=== PATIENT | male | born 1945 | race Caucasian/White ===

== ENCOUNTER 2022-10-30 11:39 | Outpatient (REF) | payer MEDICARE, SELFPAY ==
[2022-10-30 11:56] LABS: MANUAL DIFF FLAG NO
[2022-10-30 12:18] LABS: Basophils Percent Auto 0.5 % (0-2); Eosinophils Absolute Auto 0.2 X10*3/uL (0.0-0.4); Hemoglobin 14.8 g/dl (14.0-18.0); Imm Gran Abs Auto 0.04 X10*3/uL (0.00-0.03); Imm Gran Pct Auto 0.7 % (0.0-0.4); Lymphocytes Absolute Auto 1.5 X10*3/uL (1.2-4.9); Lymphocytes Percent Auto 25.9 % (20-40); Mean Corpuscular HGB Conc 32.9 g/dl (31.0-36.0); Mean Corpuscular Hemoglobin 31.5 pg (27.0-33.0); Mean Corpuscular Volume 95.7 fL (80.0-98.0); Mean Platelet Volume 10.7 fL (9.4-12.4); Monocytes Absolute Auto 0.7 X10*3/uL (0.1-1.2); Monocytes Percent Auto 11.3 % (2-11); Neutrophils Absolute Auto 3.3 x10*3/uL (2.0-8.3); Neutrophils Percent Auto 57.6 % (45-73); Platelet Count 169 X10*3/uL (160-400); Red Cell Distribution Width 12.8 % (11.0-16.0); White Blood Count 5.8 X10*3/uL (4.8-10.8)
[2022-10-30 14:24] LABS: Alanine Aminotransferase 23 U/L (0-40); Albumin Level 3.9 g/dL (3.5-5.0); Alkaline Phosphatase 69 U/L (39-117); Anion Gap 11 (12-20); Aspartate Amino Transferase 20 U/L (5-37); Bilirubin Direct 0.3 mg/dL (0.0-0.5); Bilirubin Total 1.1 mg/dL (0.0-1.0); Blood Urea Nitrogen 13 mg/dL (9-16); Carbon Dioxide 27 mmol/L (22-29); Chloride 106 mmol/L (96-108); Cholesterol 163 mg/dL (<200); Estimated Glomerular Filt Rate > 60; Glucose Fasting 95 mg/dL (60-99); HDL Cholesterol 38 mg/dL (>40); LDL Cholesterol Calculated 102 mg/dL (<100); Potassium 3.9 mmol/L (3.3-5.1); Sodium 140 mmol/L (135-145); Total Protein 6.7 g/dL (6.5-8.0); Triglycerides 118 mg/dL (<150)
[2022-10-30 15:12] LABS: Prostate Specific Antigen Scr 0.78 ng/mL (<0.05-4.0)
== END 2022-10-30 11:40 | disposition home or self-care (01) ==
LOC: HO.LAB 11:39
PROVIDERS: PCP Internal Medicine; Visit Provider Internal Medicine
DX: Z00.00 Encounter for general adult medical examination without abnormal findings (principal); Z12.5 Encounter for screening for malignant neoplasm of prostate; E78.5 Hyperlipidemia, unspecified; R53.83 Other fatigue
CPT/HCPCS: 36415; 80051; 80061; 80076; 82565; 82947; 84153; 84520; 85025

== ENCOUNTER 2024-08-27 11:14 | Outpatient (AMB) | payer MEDICARE, SELFPAY ==
--- NOTE | 2024-08-27 11:22 | MHC.OFFVIS ---
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 Pt states he has been experiencing shortness of breath for the past 6 months. 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 The aneurysm was initially identified during a mobile lab screening in [place], where it was noted to be slightly enlarged. Subsequent evaluation by the patient's primary care physician led to further imaging, which showed an increase in size over a year. The patient alternates residence between [place] and [place], spending time in [place] until December. The most recent ultrasound was conducted at a regular hospital in April, and the aneurysm was deemed small, not requiring surgical intervention at this time. The patient has a history of smoking, having quit at the age of 36, and is currently prediabetic. There is no family history of aneurysms, although the patient is aware of a neighbor who from an aneurysm. He now presents for vascular evaluation. [facility] Social History (Updated 08/27/24 @ 11:25 by Ana Rosa Kolb [facility]) Alcohol intake: current Alcohol intake frequency: a few times a week Patient Tobacco Use Status: Never used Tobacco Use of substances other than those prescribed or required for medical reasons: No Review of Systems Const All systems reviewed & are unremarkable except as noted in HPI and below Reports no additional complaints ENT Reports Normal hearing present Card Denies chest pain, Denies chest pain at rest, Denies chest pain with activity and Denies pedal edema Resp Denies cough GI Denies abdominal pain Musc Denies abnormal gait, Denies muscle cramps and Denies radiating pain into limb Skin/Breast Denies skin ulcer and Denies wounds Neuro Reports Normal hearing present and Denies abnormal gait Psych Reports no additional complaints Physical Exam Vital Signs: BMI result Body Mass Index 35.5 Const General: cooperative, healthy appearing and comfortable Orientation/consciousness: oriented to person, oriented to place and oriented to time HEENT Head: Yes normal to inspection Neck Neck: Yes normal visual inspection Carotids: no bruits Chest Chest palpation & inspection: normal inspection of the chest Resp Effort & Inspection: normal respiratory effort and able to speak in complete sentences Auscultation: clear to auscultation bilaterally, no crackles, no rales, no rhonchi and no wheezes Cardio Rate: regular rate Rhythm: regular rhythm Heart sounds: S1 normal heart sound present and S2 normal heart sound present Bruits: no carotid bruits Peripheral pulses: Peripheral pulses 2+ throughout GI Inspection: Yes normal to inspection Skin Wounds: no wounds Hair: normal Neuro General: oriented to person, oriented to place and oriented to time Cranial nerves: Yes CN's II-XII intact bilaterally and Yes Normal hearing present Cognition (Neuro): normal cognition Motor exam (neuro): 5/5 motor strength present throughout Extrem Other: venous exam: No significant superficial varicosities or spider telangiectasias, minimal edema General: No clubbing, No cyanosis and No edema Psych Appearance: grossly normal Mental Status: mental status grossly normal Speech and movement: Normal speech and movement present Results Reviewed Results Reviewed: Written report from 05/07/2024 aortic ultrasound done in [place] measures 3.6 x 4.2 x 6.5 cm. Assessment & Plan Assessment & Plan (1) AAA (abdominal aortic aneurysm) without rupture: Code(s): I71.40 - Abdominal aortic aneurysm, without rupture, unspecified Category: Medical Qualifiers: Abdominal aorta location: infrarenal aorta Qualified Code(s): I71.43 - Infrarenal abdominal aortic aneurysm, without rupture Plan: In short patient has radiologic evidence of a AAA on 3.6 cm on ultrasound. We have discussed the pathophysiology of aortic aneurysms and the risk of ruptures. We have discussed rupture risk based on size. In addition we have discussed conservative measures and risk factor modification for prevention of increase in size of the aneurysm. the patient is scheduled for surveillance follow-up in approximately 3 months. Thank you for allowing us to participate in the care of this patient Orders: Orders US abdominal aortic aneurysm 3 Months I71.43 - Infrarenal abdominal aortic aneurysm, without rupture Coding Level of Care Code New Pt Level 4 (17883) Complex EM visit Add On G2211 Diagnoses Infrarenal abdominal aortic aneurysm (AAA) without rupture I71.43 Abdominal aorta location: infrarenal aorta
[2024-08-27 11:24] VITALS: BMI 35.5
--- OUTSIDE RECORDS SUMMARY | 2024-08-27 12:04 | XMS_ITS | Data Portability ---
Author Organization [facility], Main Office Address [address] [place] [address] Care Team Providers Care Lasting Room Machine Operator Name Role Phone AVA MILLER Rockboard Lather [phone] Assessment No assessment recorded. Plan of Treatment Reminders Order Date Submit Date Provider Last Modified By Organization Details Last Modified Time Details Appointments None record ed. Lab None record ed. Referral None record ed. Procedures None record ed. Surgeries None record ed. Imaging None record ed. Medication Orders None record ed. Patient TargetsNo targets recorded. Patient InstructionsNo instructions recorded. Reason for Referral None Reported. Procedures Surgical History Date Name Laterality Status Provider Name and Address Organization Details Recorded Time 3 colonoscopy completed Venecia Graham [facility] 02/12/2023 14:16:13 Imaging Results None recorded. Procedure Notes None recorded. Medical Equipment None Reported. Allergies No known drug allergies Medications Name Sig Start Date Stop Date Status Note LastModified by Organization Details LastModified Time losartan 50 mg tablet active Not Available Not Available Not Available atorvastatin 20 mg tablet active Not Available Not Available Not Available tamsulosin 0.4 mg capsule TAKE 1 CAPSULE BY MOUTH TWICE DAILY active Not Available Not Available No t Available clotrimazole-b etamethasone 1 %-0.05 % topical cream APPLY TWICE DAILY TO AFFECTED AREA NEEDED active Not Available Not Available No t Available ipratropium bromide 42 mcg (0.06 %) nasal spray SPRAY TWO SPRAYS IN EACH NOSTRIL THREE TIMES A DAY NEEDED active Not Available Not Available No t Available aspirin active Not Available Not Avail able Not Available Fish Oil active Not Available Not Avai lable Not Available Miralax active Not Available Not Avail able Not Available Vitals Date Recorded Body weight Heart rate Oxygen saturation Oxygen saturation in Arterial blood by Pulse oximetry Body mass index (BMI) Body height Systolic And Diastolic Provider Name and Address Organization Details Last Updated DateTime 3 02229.3 3 g 78 /min 98 % 98 % 34.5 kg/m2 167.64 cm 132/80 mm[Hg] Venecia Graham [facility] 3 14:14:14 Social History None recorded. Functional Status None recorded. Mental Status None recorded. Family History Relationship Description Onset Age of this Age Resolved Age Notes LastModified by Organization Details LastModified Time Maternal Uncle Malignant tumor of colon [email or web address] Not available 01/25 14:15:49 Medical History No medical history recorded. Past Encounters Encounter ID Performer Location Encounter Start Date Encounter Closed Date Diagnosis/Indication Diagnosis SNOMED-CT Code Diagnosis ICD10 Code Diagnosis Note [id number] DO [address] [facility] [place] [address] [facility] [address] [place] [address] 02/12/2023 13:10:43 02/12/2023 14:38:33 Altered bowel function 85113752 R19.4 1) 77-year-ol d male with reports of bowel changes in the last few weeks which has since resolved. He currently denies any constipati on and says he is having regular bowel movements. He also reported having had passing thinner than normal stools, but this has since resolved.2 ) I suggested trying a course of linzess; however, he politely declined in favor of continuing with his current bowel regimen. History of polyp of colon [id number] Z86.010 1) He reports his last colonoscop y in 2012 was negative but says colon polyps were found during a previous colonoscop y. He does report having had two negative Cologuard tests since 2013.2) I did suggest a surveillan ce colonoscop y; however, he politely declined to schedule at this time. We did review the risks of not having the procedure. 3) I asked him to contact the office if he should change his mind. Health Concerns Section Related Observation LastModified by Organization Detai ls LastModified Time None Recorded Concern Status LastModified by Organization Details LastModified Time None Recorded Advance Directives Directive None Recorded Payers Insurance Date Sequence Insurance Name Policy Number Policy Ramirez Covered Member ID Ramirez Member ID Guarantor Name 02/14/2023 2 [facility] (MEDICARE REPLACEMENT/A DVANTAGE - PPO) Vivek Appiah [id number] Vivek Appiah 02/14/2023 1 [place] Vivek Appiah [id number] Vivek Appiah 02/14/2023 2 [employer] (MEDICARE SUPPLEMENT) Vivek Appiah [id number] Vivek Appiah Notes Date Note Type Note Provider Name and Address Organization Details Recorded Time 02/12/2023 text/html 77-year-old male with a family history of colon cancer in a second-degree relative (a maternal uncle, diagnosed in his 60s), colon polyps, and bowel changes, presents for further evaluation. He reports pattern including having a bowel movement every 2 days with the use of buoj-qth-epbxzxz MiraLax daily. He said that he had recently tried a course of erai-jyb-ykqkobp probiotics; however, this led to a change in bowel habits citing him passing thinner than normal stools for 1-1/2 weeks. He did stop taking the probiotics and says his bowel movements have begun to return to normal. He says that he did have a normal bowel movement yesterday and today. He was report having to negative Cologuard test since his last colonoscopy in 2012, with his last negative Cologuard test occurring 6 months prior. Denies any reflux or heartburn symptoms. Per patient, his last colonoscopy was in and was negative. He does report a past history of colon polyps. AVA MILLER APRN [address] [facility], [place], [address], [facility] 02/12/2023 14:36:59
== END 2024-08-27 11:50 | disposition home or self-care (01) ==
LOC: HO.HVS 11:14
PROVIDERS: PCP Internal Medicine; Visit Provider Surgery Vascular Surgery
DX: I71.43 Infrarenal abdominal aortic aneurysm, without rupture (principal)
CPT/HCPCS: 99204; G2211

== ENCOUNTER → 2024-08-27 11:14 | Outpatient (BNVA) | payer MEDICARE, SELFPAY | PROVIDERS: PCP Internal Medicine; Visit Provider Surgery Vascular Surgery | DX: I71.43 Infrarenal abdominal aortic aneurysm, without rupture (principal) | CPT/HCPCS: 99202 ==

== ENCOUNTER 2024-10-22 10:47 | Outpatient (AMB) | payer MEDICARE, SELFPAY ==
--- NOTE | 2024-10-22 10:51 | MHC.OFFVIS ---
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 Butcher. He has a past medical history of hypertension, BPH, hyperlipidemia, and abdominal aortic aneurysm. He presents to the office today as a new patient for weak urinary stream. In discussion with the patient today he reports for many years he had been following up with his urological care with his PCP however he has most recently retired and recommendations were made for urology referral for further assessment evaluation. He reports for many years he has had a weak urinary stream at which time he was started on Flomax and did find this helpful. He reports more recently he started experiencing weak urinary stream and recommendations were made for increase in Flomax to 0.8 mg daily. He does feel this has been helpful. He also reports a previous history of a hydrocele and having had intervention however does not recall will provider he followed up with. He reports this was many years ago. He also reports feeling his penis is hidden. In office urinalysis results reviewed with the patient today. PVR 0 mL. He denies nocturia, hematuria, dysuria, foul smelling urine, changes to urinary stream, flank pain, fever, and or chills. We did discussed at length potential causes of weak urinary stream and buried penis. We discussed obtaining retroperitoneal ultrasound and PSA for further assessment evaluation. All questions were answered. He otherwise offers no other issues or concerns at this time. In review of patient's chart it appears PSA 07/17 0.8. He discusses typically living in [place] from December to April and would like to have workup done prior to leaving. Urinary Symptoms Review - Slow urinary stream despite tamsulosin treatment - Increased urine output during bowel movements - Current medication: Tamsulosin 0.4 mg twice daily - Finasteride prescribed by PCP but not yet taken Discussion Notes I discussed with the patient that the slow urinary stream could be related to an enlarged prostate, which is common with aging. We talked about the role of medications like tamsulosin and finasteride, and the potential need for an ultrasound for further assessment evaluation I explained the benefits and risks of medication versus surgical intervention for benign prostatic hyperplasia. The patient was advised to continue with tamsulosin and to consider sitting while urinating to help with bladder emptying. We also discussed the importance of addressing any potential side effects of medications and considering lifestyle modifications. [facility] Social History (Updated 08/27/24 @ 11:25 by Ana Rosa Kolb CMA) Alcohol intake: current Alcohol intake frequency: a few times a week Patient Tobacco Use Status: Never used Tobacco Review of Systems Const All systems reviewed & are unremarkable except as noted in HPI and below Physical Exam Const General: cooperative, healthy appearing, comfortable, no acute distress, well developed, alert and awake Nutritional Appearance: overweight Orientation/consciousness: patient oriented x3 Limitations: no limitations HEENT Head: Yes normal to inspection, Yes normocephalic and Yes atraumatic Ears: hearing grossly normal bilaterally Eyes General: appearance normal, both eyes and all related structures Neck Neck: Yes normal visual inspection and Yes trachea midline Chest Chest palpation & inspection: normal inspection of the chest Resp Effort & Inspection: normal respiratory effort and able to speak in complete sentences Cardio Rate: regular rate GI Inspection: Yes normal to inspection General: Yes no CVA tenderness Back/Spine/Pelvis Back: no CVA tenderness Skin General skin exam: no rashes or lesions noted Neuro General: patient oriented x3 Extrem General: Yes normal to inspection Psych Appearance: grossly normal and well kempt Mental Status: mental status grossly normal Speech and movement: Normal speech and movement present and Clear speech present Affect: normal affect Attitude: cooperative Thought process: Normal thought process present Thought content: Normal thought content present Insight: Fair insight present (Psych) Judgement: Fair judgement present (Psych) Office Procedures Post Void Residual Post Residual Void Post Void Residual (PVR): 0 [id number]-Fddh Void Residual by ultrasound Results AMB Urinalysis, Automated UA Leukoctes 0 Janak/uL Last Edit by SHONNA Medina on 10/22/24 11:05 UA Nitrite Negative Last Edit by SHONNA Medina on 10/22/24 11:05 UA Urobilinogen 0.2 mg/dL Last Edit by Edson Willis [facility] on 10/22/24 11:05 UA Protein 15 mg/dL Last Edit by Edson Willis [facility] on 10/22/24 11:05 UA pH 7.0 Last Edit by Edson Willis [facility] on 10/22/24 11:05 UA Blood 0 Layo/uL Last Edit by Edson Willis [facility] on 10/22/24 11:05 UA Specific [place] 1.010 Last Edit by Edson Willis [facility] on 10/22/24 11:05 UA Ketone Negative Last Edit by Edson Willis [facility] on 10/22/24 11:05 UA Bilirubin 0 mg/dL Last Edit by Edson Willis [facility] on 10/22/24 11:05 UA Glucose 0 mg/dL Last Edit by Edson Willis [facility] on 10/22/24 11:05 Results Reviewed Results Reviewed: Laboratory Last Values Urine pH (Auto) 7.0 10/22/24 11:05 Specific [place] (Auto) 1.010 10/22/24 11:05 Urine Protein (Auto) 15 mg/dL 10/22/24 11:05 Glucose (UA)(Auto) 0 mg/dL 10/22/24 11:05 Urine Ketones (Auto) Negative 10/22/24 11:05 Urine Blood (Auto) 0 Layo/uL 10/22/24 11:05 Urine Nitrite (Auto) Negative 10/22/24 11:05 Urine Bilirubin (Auto) 0 mg/dL 10/22/24 11:05 Urine Urobilinogen (Auto) 0.2 mg/dL 10/22/24 11:05 Leukocyte Esterase (Auto) 0 Janak/uL 10/22/24 11:05 Assessment & Plan Assessment & Plan (1) Weak urinary stream: Code(s): R39.12 - Poor urinary stream Category: Medical Plan In office urinalysis results reviewed with the patient today; as noted above. PVR 0 mL. Continue Flomax. We did discussed importance of weight loss to assist with lower urinary tract symptoms as well as buried penis. We discussed attempting to sit when voiding to relax pelvis. Will obtain PSA for further assessment evaluation. Will obtain retroperitoneal ultrasound for further assessment evaluation. We did discussed potential causes of buried penis, weak urinary stream, and hydroceles. All questions were answered. Follow-up in 1-3 months with imaging, labs and PVR; or sooner with any issues, concerns, and or questions. Orders: Orders AMB Urinalysis Automated Today Z13.9 - Encounter for screening, unspecified US retroperitoneal comp Today R39.12 - Poor urinary stream Prostate Specific Antigen Today R39.12 - Poor urinary stream Patient Instructions: The patient had an opportunity to ask questions regarding the treatment plan. All questions were answered. Physical exam, labs, and imaging were discussed and reviewed in detail. As well as risks, benefits, and discussion of treatment choices. No major barriers to understanding were identified. The patient expressed understanding and agreement with the above treatment plan. The patient was made aware they should contact our office by phone for worsening of their current condition, the appearance of new symptoms, or with any questions or concerns. Compliance is encouraged with any medications and follow up testing that is ordered. It is a privilege to be allowed the opportunity to participate in? your urological care.? Again, if you have any questions or concerns If you have any questions or concerns please do not hesitate to contact me. The office is [phone]. This note is constructed using voice recognition software. While every effort has been made to ensure accuracy entrepreneurship program director errors may have been included. Yours sincerely, REG Salazar Coding Level of Care Code New Pt Level 3 (83947) Diagnoses Weak urinary stream R39.12 CPT Codes Post Residual Void - PVR CPT Code: 27747-Xict Void Residual by ultrasound ([id number])
--- OUTSIDE RECORDS SUMMARY | 2024-10-22 12:16 | XMS_ITS | Patient Health Record ---
Author Organization [facility] Address [address] [place] [address] Care Team Providers Care Psychology Physician Name Role Phone Hadley (RETIRED) [employer] Primary Care Provider Unavailable Marin Haynes Unavailable [phone] Reason For Referral No Information Plan Of Treatment No Information
== END 2024-10-22 11:38 | disposition home or self-care (01) ==
LOC: HO.HUSH 10:47
PROVIDERS: PCP Internal Medicine; Visit Provider Nurse Practitioner Family
DX: Z13.9 Encounter for screening, unspecified (principal); R39.12 Poor urinary stream
CPT/HCPCS: 99203

== ENCOUNTER → 2024-10-22 10:47 | Outpatient (BNVA) | payer MEDICARE, SELFPAY | PROVIDERS: PCP Internal Medicine; Visit Provider Nurse Practitioner Family | DX: R39.12 Poor urinary stream (principal); Z13.9 Encounter for screening, unspecified | CPT/HCPCS: 51798; 81003; 99202 ==

== ENCOUNTER 2024-11-23 07:59 | Outpatient (REF) | payer MEDICARE, SELFPAY ==
--- NOTE | ~2024-11-23 | US_ITS ---
CLINICAL HISTORY: I71.43 - Infrarenal abdominal aortic aneurysm, without rupture US of abdominal aorta Comparison: None provided Findings: Atherosclerotic changes of the abdominal aorta, fusiform aneurysmal dilatation of distal abdominal aorta with mildly prominent mural thrombus, borderline aneurysmal dilatation of the proximal aorta. Aorta diameter proximal 3.0 x 2.7 cm. Aorta diameter mid 2.0 x 2.5 cm. Aorta diameter distal 4.0 x 5.0 cm. Right common iliac artery maximum diameter 1.6 x 2.2 cm. Left common iliac artery maximum diameter 1.4 x 1.5 cm. Impression: 1. Distal abdominal aorta aneurysm 5 cm with mildly prominent mural thrombus. 2. 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 3. 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 This document has been electronically signed by: Jodi Grijalva MD on 11/23/2024 16:46:24
--- OUTSIDE RECORDS SUMMARY | 2024-11-23 08:02 | XMS_ITS | Patient Health Record ---
Author Organization [facility] Address [address] [place] [address] Care Team Providers Care Well Blower Name Role Phone Hadley (RETIRED) [employer]wan [employer] Primary Care Provider Unavailable Marin Haynes Unavailable [phone] Reason For Referral No Information Plan Of Treatment No Information
== END 2024-11-23 08:00 | disposition home or self-care (01) ==
LOC: HO.US 07:59
PROVIDERS: PCP Internal Medicine; Visit Provider Surgery Vascular Surgery
DX: I71.43 Infrarenal abdominal aortic aneurysm, without rupture (principal)
CPT/HCPCS: 76706

== ENCOUNTER → 2024-11-23 08:01 | Outpatient (BNV) | payer MEDICARE, SELFPAY | PROVIDERS: PCP Internal Medicine; Visit Provider Radiology Diagnostic Radiology | DX: I71.40 Abdominal aortic aneurysm, without rupture, unspecified (principal) | CPT/HCPCS: 76706 ==

== ENCOUNTER 2024-11-24 10:23 | Outpatient (AMB) | payer MEDICARE, SELFPAY ==
[2024-11-24 10:24] VITALS: BP 138/80; PULSE 78; RESP 20; TEMP 36.3; O2SAT 97; BMI 36.2
--- NOTE | 2024-11-24 10:24 | A.OFFPC_ITS ---
Vital Signs 11/24/24 10:24 Height 5 ft 6 in Weight 224 lb 8 oz BMI 36.2 BP 138/80 Blood Pressure Location Rt brachial Position Sitting Respiration 20 Pulse 78 Pulse Source Pulse Oximeter Temp 97.3 F Temp Source Temporal Artery Scan Pulse Oximetry (%) 97 Oxygen Delivery Method Room Air Intake Visit Reasons: Establish care Accompanied by: Self / Same As Patient Allergies Gadolinium-Containing Contrast Medi Allergy (Mild, Verified 11/24/24 10:46) Rash Medication List - Last Reconciled 11/24/24 by Marcia De La Paz PA-C aspirin 162.5 mg PO 2XW atorvastatin 20 mg PO DAILY coQ10 (ubiquinol) (Qunol Rashawn CoQ10) 100 mg PO BID fexofenadine (Remedios Allergy) 180 mg PO DAILY losartan 50 mg PO DAILY magnesium glycinate mg PO icifggtt-vdz-zhjmn-vit K-lycop 400-20-370 mcg (Men's 50 Plus Multivitamin) 1 tab PO DAILY tamsulosin 0.4 mg PO BID Tobacco use date assessed: 11/24/24 Fall risk assessment: No Falls in past year Last assessed Fall Risk: 11/24/24 Dental Screening Dental Screen Date: 11/24/24 Did you have a dental visit in the last 12 months?: Yes Was dental information given to patient?: Patient has dentist HPI Establish care HPI Details The patient is a 79-year-old male presenting with concerns about a persistent throat issue. He reports experiencing a sensation of something getting stuck in his throat for about a year and a half, particularly noticeable at night when lying down. He describes the sensation as a thickening or swelling feeling, accompanied by phlegm accumulation that necessitates sitting up to clear. The patient has a history of prediabetes, with glucose levels consistently high for the past 10 to 15 years, and a hemoglobin A1c of 5.9% noted in December. He has been managing his condition with lifestyle modifications and regular monitoring. He has been on atorvastatin for hyperlipidemia for approximately 30 years, with current cholesterol levels well-controlled. The patient also takes CoQ10, which he reports has alleviated some symptoms associated with statin use. The patient is on losartan for hypertension, with blood pressure readings noted as perfect during the visit. He reports symptoms consistent with rhinitis, including watery eyes and sneezing after meals, which he manages with Remedios. A heart murmur was detected during the physical examination, and the patient reports occasional shortness of breath when climbing stairs. He has a history of a previous echocardiogram and is awaiting a cardiology appointment in December. Social History - Exercise: The patient does not report a specific exercise routine. - Sleep: The patient takes naps in the a fternoon, which affects his nighttime sleep duration. [facility] Medical History (Updated 11/24/24 @ 13:50 by Marcia De La Paz PA-C) Heart murmur Rhinitis Hypertension Hyperlipidemia Prediabetes GERD (gastroesophageal reflux disease) Family History Mother AD (Alzheimer's disease) Father Heart disease Social History Housing: House Alcohol intake: current Alcohol intake frequency: a few times a week Patient Tobacco Use Status: Former Tobacco user service: Yes Current occupational status: employed and retired Cognitive needs: No Hearing needs: No Vision needs: Yes (rx glasses) Questionnaire PHQ-9 Over the last 2 weeks, how often have you been bothered by any of the following problems? 1. Little interest or pleasure in doing things: not at all 2. Feeling down, depressed, or hopeless: not at all 3. Trouble falling or staying asleep, or sleeping too much: not at all 4. Feeling tired or having little energy: not at all 5. Poor appetite or overeating: not at all 6. Feeling bad about yourself - or that you are a failure or have let yourself or your family down: not at all 7. Trouble concentrating on things, such as reading the newspaper or watching television: not at all 8. Moving or speaking so slowly that other people could have noticed. Or the opposite - being so fidgety or restless that you have been moving around a lot more than usual: not at all 9. Thoughts that you would be better off or of hurting yourself in some way: not at all Total score: 0 Depression Screening Interpretation: Negative Depression Screening Done: Yes 57753 - PHQ-9 Billing: Yes Source: Developed by Drs. Marin Orellana, Morenita Arellano, Steffen Knapp and colleagues, with an educational susana from [employer] Thrive Questionnaire Date Thrive assessed: 11/24/24 I am a: Patient What is your living situation today?: I have a steady place to live Within the past 12 months, did the food you bought not last and you didn't have the money to get more?: Never true Within the past 12 months, did you worry whether your food would run out before you got money to buy more?: Never true Do you have trouble paying for medicines?: No Do you have trouble getting transportation to medical appointments?: No Do you have trouble paying your heating and electricity bill?: No Do you have trouble taking care of your child, family member or friend?: No Do you have trouble with day-to-day activities such as bathing, preparing meals, shopping, managing finances, etc.?: No Are you currently unemployed and looking for a job?: No Are you interested in more education?: No Please select the resources that you would like help with: None THRIVE Score: 0 AUDIT C Alcohol Use Questionnaire (AUDIT-C) 1. How often do you have a drink containing alcohol?: 2-3 times a week 2. How many drinks containing alcohol do you have on a typical day when you are drinking?: 1 or 2 Total Score: 3 Score Reviewed/Action Taken: No CASA-7 AMB Questionnaire CASA-7 Date CASA - 7 assessed: 11/24/24 Feeling nervous, anxious, or on edge: 0 = Not at all Not being able to stop or control worryin = Not at all Worrying too much about different things: 0 = Not at all Trouble relaxin = Not at all Being so restless that it is hard to sit still: 0 = Not at all Becoming easily annoyed or irritable: 0 = Not at all Feeling afraid as if something awful might happen: 0 = Not at all Total CASA-7 score (0-4 normal; 5-9 mild; 10-14 moderate; 15-21 severe): 0 Source: Developed by Drs. Marin Orellana, Morenita Arellano, Steffen Knapp and colleagues, with an educational susana from [employer]. CASA-7 Assessment Billing CASA-7 Assessment Tool: CASA-7 Assessment 03170 Review of Systems Const Details: - General: Denies recent falls. - Cardiovascular: Reports occasional shortness of breath when climbing stairs. Denies chest pain. - Respiratory: Denies cough or wheezing. - Gastrointestinal: Reports sensation of something stuck in throat, phlegm accumulation at night. - Neurological: Denies headaches or dizziness. - Musculoskeletal: Denies swelling in legs, reports sensation of lump pads on feet at night. All systems reviewed & are unremarkable except as noted in HPI and below Physical exam (Primary Care) Vital Signs: Last Vital Signs Temp 97.3 F 11/24/24 10:24 Pulse 78 11/24/24 10:24 Resp 20 11/24/24 10:24 BP 138/80 11/24/24 10:24 Pulse Ox 97 11/24/24 10:24 Oxygen Delivery Method Room Air 11/24/24 10:24 Care Plan Goal for BP management: <140/90 at Goal BMI result Body Mass Index 36.2 BMI Assessment/Plan discussion: High BMI High, discussed plan: lifestyle, weight reduction, dietary, physical activity, alcohol moderation and other Tobacco/Smoking Status: Tobacco use Status Tobacco use date assessed 11/24/24 11/24/24 10:27 Patient Tobacco Use Status Former Tobacco user 11/24/24 10:41 PHQ-9: PHQ-9 Score PHQ-9: Total score 0 11/24/24 10:41 Depression Screening Interpretation: Negative Thrive Assessment: Date of Thrive Assessment Date Thrive assessed 11/24/24 11/24/24 10:27 Const Other: Appearance: Alert. Oriented X3. No acute distress. Head: Normal external exam. Normocephalic. Atraumatic. Eyes: Pupils are equal, round, and reactive to light. Extraocular movements intact. Conjunctiva and sclera normal. Eyelids normal. Ears: External auditory canal normal. Tympanic membranes normal. Throat: Pharynx normal. Uvula midline. Moist mucous membranes. Patient reports sensation of something in the throat, especially at night, with phlegm accumulation causing coughing. Neck: Normal inspection. Neck supple. Full range of motion. No adenopathy. Thyroid Normal. No meningeal signs. No neck mass noted. Cardiovascular: Normal heart rate and rhythm. Heart sound normal. Murmur noted. Pulses normal throughout. Respiratory: No respiratory distress. Painless inspiration. Breath sounds normal. No wheezes/rales/rhonchi noted. Chest nontender. No accessory muscle usage noted or decreased air movement noted. Reports occasional shortness of breath when climbing stairs. Abdomen: Soft and nontender. No distention noted. No organomegaly noted. Back: No costovertebral angle tenderness. Full range of motion noted. Skin: Skin warm and dry. Normal skin color. Normal skin turgor. No rashes/lesions/lacerations noted. Extremities: No lower extremity edema. Extremities exhibit normal range of motion. Reports sensation of lump pads on the bottom of feet at night. Neuro: Oriented X 3. No motor deficit. No sensory deficit. Reflexes normal. Office Procedures Flu Questionnaire Does the patient have a severe egg allergy?: No Does the patient have severe life threatening allergies?: No Does the patient have a fever or illness today?: No Has the patient ever had Guillain-Alpine Syndrome?: No Has the patient ever had any past reaction to a flu shot?: No Immunizations Fluarix [id number] (PF) 45 mcg (15 mcg x 3)/0.5 mL IM syringe Performing Provider: Marcia De La Paz PA-C [place] [facility] Documented (not given) by: Natalie Mendes CMA on 11/24/24 10:41 Reason Not Given: Received Previously Results Reviewed Results Reviewed: - Labs: Glucose 112 mg/dL, Hemoglobin A1c 5.9%, Total cholesterol 145 mg/dL, Triglycerides 116 mg/dL, HDL 40 mg/dL, LDL 82 mg/dL. - Tests: Previous echocardiogram noted, awaiting cardiology appointment. Coding Level of Care Code New Pt Level 4 (08068) Complex EM visit Add On G2211 Diagnoses Prediabetes R73.03 Hyperlipidemia E78.5 Hypertension I10 GERD (gastroesophageal reflux disease) K21.9 Rhinitis J31.0 Heart murmur R01.1 Infrarenal abdominal aortic aneurysm (AAA) without rupture I71.43 Abdominal aorta location: infrarenal aorta Additional Codes PHQ-9 - 78214 - PHQ-9 Billing: Yes ([id number]) CASA-7 Assessment Billing - CASA-7 Assessment Tool: CASA-7 Assessment 08250 ([id number]) Time Spent (min) 45 Assessment & Plan Assessment & Plan (1) Prediabetes: Code(s): R73.03 - Prediabetes Category: Medical Plan: The patient has a history of prediabetes with glucose levels consistently high for the past 10 to 15 years and a hemoglobin A1c of 5.9% noted in December. Management includes lifestyle modifications and regular monitoring of glucose levels. (2) Hyperlipidemia: Code(s): E78.5 - Hyperlipidemia, unspecified Category: Medical Plan: The patient has been on atorvastatin for hyperlipidemia for approximately 30 years, with current cholesterol levels well-controlled. He also takes CoQ10, which has alleviated some symptoms associated with statin use. (3) Hypertension: Code(s): I10 - Essential (primary) hypertension Category: Medical Plan: The patient is on losartan for hypertension, with blood pressure readings noted as perfect during the visit. (4) GERD (gastroesophageal reflux disease): Code(s): K21.9 - Gastro-esophageal reflux disease without esophagitis Category: Medical Plan: The patient reports a sensation of something getting stuck in his throat, particularly noticeable at night, accompanied by phlegm accumulation. A barium swallow study and referral to gastroenterology for further evaluation have been planned. (5) Rhinitis: Code(s): J31.0 - Chronic rhinitis Category: Medical Plan: The patient reports symptoms consistent with rhinitis, including watery eyes and sneezing after meals, managed with Remedios. (6) Heart murmur: Code(s): R01.1 - Cardiac murmur, unspecified Category: Medical Plan: A heart murmur was detected during the physical examination, and the patient reports occasional shortness of breath when climbing stairs. He has a history of a previous echocardiogram and is awaiting a cardiology appointment in December. (7) AAA (abdominal aortic aneurysm) without rupture: Code(s): I71.40 - Abdominal aortic aneurysm, without rupture, unspecified Category: Medical Qualifiers: Abdominal aorta location: infrarenal aorta Qualified Code(s): I71.43 - Infrarenal abdominal aortic aneurysm, without rupture Plan: Patient has follow-up with Cardiology in December here at [facility]. Denies any acute complaints. Condition is chronic and stable continue to monitor. Plan Plan Patient was informed and verbally consented to the use of an ambient scribe for clinic note documentation during this visit. 1. Prediabetes The patient has a history of prediabetes with glucose levels consistently high for the past 10 to 15 years and a hemoglobin A1c of 5.9% noted in December. Management includes lifestyle modifications and regular monitoring of glucose levels. 2. Hyperlipidemia The patient has been on atorvastatin for hyperlipidemia for approximately 30 ye ars, with current cholesterol levels well-controlled. He also takes CoQ10, which has alleviated some symptoms associated with statin use. 3. Hypertension The patient is on losartan for hypertension, with blood pressure readings noted as perfect during the visit. 4. Gastroesophageal Reflux Disease (Gerd) The patient reports a sensation of something getting stuck in his throat, particularly noticeable at night, accompanied by phlegm accumulation. A barium swallow study and referral to gastroenterology for further evaluation have been planned. 5. Rhinitis The patient reports symptoms consistent with rhinitis, including watery eyes and sneezing after meals, managed with Remedios. 6. Heart Murmur A heart murmur was detected during the physical examination, and the patient reports occasional shortness of breath when climbing stairs. He has a history of a previous echocardiogram and is awaiting a cardiology appointment in December. During the visit, we discussed the patient's persistent throat issue and the plan to conduct a barium swallow study and refer him to gastroenterology for further evaluation. We also reviewed his cardiovascular status, noting the presence of a heart murmur and the need for a follow-up with cardiology. The patient was advised on the importance of regular monitoring of his prediabetes and hyperlipidemia, with lifestyle modifications and medication adherence emphasized. Orders: Orders UA CC w/rflx Micro + Cult Today Z00.00 - Encounter for general adult medical examination without abnormal findings Vitamin D 25-OH Total Today Z00.00 - Encounter for general adult medical ex amination without abnormal findings Magnesium Today Z00.00 - Encounter for general adult medical examination without abnormal findings C Reactive Protein Today Z00.00 - Encounter for general adult medical examination without abnormal findings FL barium enema Today K21.9 - Gastro-esophageal reflux disease without esoph agitis Influenza [id number] Immunization Today Z23 - Encounter for immunization Hemoglobin A1c Today Z00.00 - Encounter for general adult medical examination without abnormal findings Lipid Panel Today Z00.00 - Encounter for general adult medical examination without abnormal findings PSA,Total (Free>4and<10) Today Z00.00 - Encounter for general adult medical examination without abnormal findings Vitamin B12 and Folate Today Z00.00 - Encounter for general adult medical examination without abnormal findings H pylori Ag Stool Today K21.9 - Gastro-esophageal reflux disease without esophagitis Referrals Cologuard Test Z12.11 - Encounter for screening for malignant neoplasm of colon, Z12.12 - Encounter for screening for malignant neoplasm of rectum Gastroenterology Referral K21.9 - Gastro-esophageal reflux disease without esophagitis Medications: New fexofenadine (Remedios Allergy) 180 mg PO DAILY 90 tabs 3RF omeprazole 40 mg PO DAILY 90 caps 3RF Patient Instructions: - Schedule and complete the barium swallow study as instructed. - Follow up with the business relations manager as referred. - Continue current medications as prescribed, including atorvastatin, losartan, and Remedios. - Monitor blood glucose levels regularly and adhere to lifestyle modifications for prediabetes management. - Attend the cardiology appointment in December for further evaluation of the heart murmur.
--- OUTSIDE RECORDS SUMMARY | 2024-11-24 11:32 | XMS_ITS | Patient Health Record ---
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
== END 2024-11-24 11:12 | disposition home or self-care (01) ==
LOC: HO.HMCSH 10:23
PROVIDERS: PCP Internal Medicine; Visit Provider Physician Assistant Medical
DX: R73.03 Prediabetes (principal); E78.5 Hyperlipidemia, unspecified; I10 Essential (primary) hypertension; K21.9 Gastro-esophageal reflux disease without esophagitis; J31.0 Chronic rhinitis; R01.1 Cardiac murmur, unspecified; I71.43 Infrarenal abdominal aortic aneurysm, without rupture; Z23 Encounter for immunization

== ENCOUNTER → 2024-11-24 10:23 | Outpatient (BNVA) | payer MEDICARE, SELFPAY | PROVIDERS: PCP Internal Medicine; Visit Provider Physician Assistant Medical | DX: R09.A2 Foreign body sensation, throat (principal); R73.03 Prediabetes; E78.5 Hyperlipidemia, unspecified; I10 Essential (primary) hypertension; J31.0 Chronic rhinitis; R01.1 Cardiac murmur, unspecified; K21.9 Gastro-esophageal reflux disease without esophagitis; I71.43 Infrarenal abdominal aortic aneurysm, without rupture; R00.1 Bradycardia, unspecified; Z28.89 Immunization not carried out for other reason; Z79.899 Other long term (current) drug therapy | CPT/HCPCS: 90471; 96127; 99202 ==

== ENCOUNTER 2024-12-08 10:52 | Outpatient (REF) | payer MEDICARE, SELFPAY ==
[2024-12-08 12:17] LABS: Appearance Urine Clear; Glucose Urine UA Negative (Negative); PH 5.5 (5.0-9.0); Specific Gravity - Urine 1.015 (1.005-1.025); UMIC TRIGGER UACC YES
[2024-12-08 12:30] LABS: UACC Culture Trigger YES
[2024-12-08 12:33] LABS: Hemoglobin A1C 150.7299 umol/L; Total Hemoglobin (HGBA1C) 3748.1218 umol/L
[2024-12-08 12:47] LABS: Cholesterol 158 mg/dL (<200); HDL Cholesterol 37 mg/dL (>40); Magnesium 2.3 mg/dL (1.6-2.6); Triglycerides 106 mg/dL (<150)
[2024-12-08 13:01] LABS: Prostate Specific Antigen 0.78 ng/mL (<0.05-4.0)
--- OUTSIDE RECORDS SUMMARY | 2024-12-08 13:01 | XMS_ITS | Patient Health Record ---
Author Organization [facility] Address [address] [place] [address] Care Team Providers Care Ror Engineer Name Role Phone Hadley (RETIRED) [employer] Primary Care Provider Unavailable Marin Haynes Unavailable [phone] Reason For Referral No Information Plan Of Treatment No Information
[2024-12-08 13:02] LABS: PSA,Total (Free>4and<10) 0.78 ng/mL (0.00-4.00)
[2024-12-08 13:16] LABS: Folate 12.6 ng/mL (> or = 4.0); Vitamin B12 607 pg/mL (200-900)
== END 2024-12-08 10:53 | disposition home or self-care (01) ==
LOC: HO.LAB 10:52
PROVIDERS: Absent Provider Nurse Practitioner Family; PCP Physician Assistant Medical; Visit Provider Physician Assistant Medical
DX: Z00.00 Encounter for general adult medical examination without abnormal findings (principal); Z13.6 Encounter for screening for cardiovascular disorders; Z13.1 Encounter for screening for diabetes mellitus; Z12.5 Encounter for screening for malignant neoplasm of prostate; R39.12 Poor urinary stream
CPT/HCPCS: 36415; 80061; 81001; 82306; 82607; 82746; 83036; 83735; 84153; 86140; 87086

== ENCOUNTER 2024-12-10 10:10 | Outpatient (AMB) | payer MEDICARE, SELFPAY ==
--- NOTE | 2024-12-10 10:12 | MHC.OFFVIS ---
Vital Signs 12/10/24 10:15 Height 5 ft 6 in Weight 224 lb BMI 36.2 Intake Visit Reasons: follow up AAA US 11/23/24 Intake Note: follow up AAA US 11/23/24, no complaints Accompanied by: Self / Same As Patient Allergies Gadolinium-Containing Contrast Medi Allergy (Mild, Verified 12/10/24 10:16) Rash HPI HPI follow up AAA US 11/23/24: Details: The patient is a 79-year-old male presenting for evaluation of an abdominal aortic aneurysm. The aneurysm was initially identified during a mobile lab screening in [place], and subsequent imaging at a hospital facility confirmed the presence of the aneurysm. The most recent ultrasound dated 11/23/2024 shows the distal aorta measuring 5 cm with a prominent thrombus. The patient has a history of smoking, having quit at the age of 36, and is currently prediabetic. There is no family history of aneurysms reported. She now presents for vascular evaluation. [facility] Medical History Heart murmur Rhinitis Hypertension Hyperlipidemia Prediabetes GERD (gastroesophageal reflux disease) Family History Mother AD (Alzheimer's disease) Father Heart disease Social History Housing: House Alcohol intake: current Alcohol intake frequency: a few times a week Patient Tobacco Use Status: Former Tobacco user service: Yes Current occupational status: employed and retired Cognitive needs: No Hearing needs: No Vision needs: Yes (rx glasses) Review of Systems Const All systems reviewed & are unremarkable except as noted in HPI and below Reports no additional complaints ENT Reports Normal hearing present Card Denies chest pain, Denies chest pain at rest, Denies chest pain with activity and Denies pedal edema Resp Denies cough GI Denies abdominal pain Musc Denies abnormal gait, Denies muscle cramps and Denies radiating pain into limb Skin/Breast Denies skin ulcer and Denies wounds Neuro Reports Normal hearing present and Denies abnormal gait Psych Reports no additional complaints Physical Exam Vital Signs: BMI result Body Mass Index 36.2 Const General: cooperative, healthy appearing and comfortable Orientation/consciousness: oriented to person, oriented to place and oriented to time HEENT Head: Yes normal to inspection Neck Neck: Yes normal visual inspection Carotids: no bruits Chest Chest palpation & inspection: normal inspection of the chest Resp Effort & Inspection: normal respiratory effort and able to speak in complete sentences Auscultation: clear to auscultation bilaterally, no crackles, no rales, no rhonchi and no wheezes Cardio Rate: regular rate Rhythm: regular rhythm Heart sounds: S1 normal heart sound present and S2 normal heart sound present Bruits: no carotid bruits Peripheral pulses: Peripheral pulses 2+ throughout GI Inspection: Yes normal to inspection Skin Wounds: no wounds Hair: normal Neuro General: oriented to person, oriented to place and oriented to time Cranial nerves: Yes CN's II-XII intact bilaterally and Yes Normal hearing present Cognition (Neuro): normal cognition Motor exam (neuro): 5/5 motor strength present throughout Extrem Other: venous exam: No significant superficial varicosities or spider telangiectasias, minimal edema General: No clubbing, No cyanosis and No edema Psych Appearance: grossly normal Mental Status: mental status grossly normal Speech and movement: Normal speech and movement present Results Reviewed Results Reviewed: Ultrasound dated 11/23/2024 demonstrates distal aorta measuring 4 x 5 cm. Written report and images were reviewed. Assessment & Plan Assessment & Plan (1) AAA (abdominal aortic aneurysm) without rupture: Code(s): I71.40 - Abdominal aortic aneurysm, without rupture, unspecified Category: Medical Qualifiers: Abdominal aorta location: infrarenal aorta Qualified Code(s): I71.43 - Infrarenal abdominal aortic aneurysm, without rupture Plan: I discussed with the patient the need for a CT scan to confirm the size of the abdominal aortic aneurysm, as the ultrasound measurement may not be accurate. We plan to complete the CT scan before the patient leaves for [place], ensuring timely follow-up. If the aneurysm size warrants intervention, we will consider endovascular stent placement. Plan Patient was informed and verbally consented to the use of an ambient scribe for clinic note documentation during this visit. Orders: Orders Creatinine Today I71.43 - Infrarenal abdominal aortic aneurysm, without rupture Blood Urea Nitrogen Today I71.43 - Infrarenal abdominal aortic aneurysm, without rupture CT angio abdomen pelvis Today I71.43 - Infrarenal abdominal aortic aneurysm, without rupture Patient Instructions: - Schedule a CT scan before leaving for [place]. - Follow up with the vascular surgeon after the CT scan results are available. Coding Level of Care Code Est Pt Level 4 (75751) Complex EM visit Add On G2211 Diagnoses Infrarenal abdominal aortic aneurysm (AAA) without rupture I71.43 Abdominal aorta location: infrarenal aorta
[2024-12-10 10:15] VITALS: BMI 36.2
== END 2024-12-10 10:48 | disposition home or self-care (01) ==
LOC: HO.HVS 10:10
PROVIDERS: PCP Internal Medicine; Visit Provider Surgery Vascular Surgery
DX: I71.43 Infrarenal abdominal aortic aneurysm, without rupture (principal)
CPT/HCPCS: 99214; G2211

== ENCOUNTER → 2024-12-10 10:10 | Outpatient (BNVA) | payer MEDICARE, SELFPAY | PROVIDERS: PCP Internal Medicine; Visit Provider Surgery Vascular Surgery | DX: I71.43 Infrarenal abdominal aortic aneurysm, without rupture (principal) | CPT/HCPCS: 99212 ==

== ENCOUNTER 2024-12-17 08:47 | Outpatient (AMB) | payer MEDICARE, SELFPAY ==
--- NOTE | 2024-12-17 08:34 | MHC.PC.OV ---
Vital Signs 12/17/24 08:51 12/17/24 09:48 Height 5 ft 6 in Weight 226 lb 4 oz BMI 36.5 BP 140/70 H 132/62 Blood Pressure Location Rt brachial Lt brachial Position Sitting Respiration 16 Pulse 58 Pulse Source Pulse Oximeter Temp 97.5 F Temp Source Oral Pulse Oximetry (%) 98 Oxygen Delivery Method Room Air Intake Visit Reasons: [facility] Electronic Scale Subassembler Required: No Accompanied by: Self / Same As Patient Allergies Gadolinium-Containing Contrast Medi Allergy (Mild, Verified 12/17/24 08:34) Rash Medication List - Last Reconciled 12/17/24 by Ana Hanson MD aspirin 162.5 mg PO 2XW atorvastatin 20 mg PO DAILY cholecalciferol (vitamin D3) 50 mcg PO DAILY clotrimazole-betamethasone 1-0.05 % 1 appl topical BID coQ10 (ubiquinol) (Qunol Rashawn CoQ10) 100 mg PO BID fexofenadine (Remedios Allergy) 180 mg PO DAILY losartan 50 mg PO DAILY magnesium glycinate 100 mg PO .QD lxdqoadq-bfw-hfkfl-vit K-lycop 400-20-370 mcg (Men's 50 Plus Multivitamin) 1 tab PO DAILY omeprazole 40 mg PO DAILY polyethylene glycol 3350 (Miralax) 17 grams PO DAILY tamsulosin 0.4 mg PO BID Tobacco use date assessed: 12/17/24 Fall risk assessment: No Falls in past year Last assessed Fall Risk: 12/17/24 Dental Screening Dental Screen Date: 12/17/24 Did you have a dental visit in the last 12 months?: Yes Did you have a dental problem in the last 6 months where you did not have access to dental care?: No Was dental information given to patient?: Patient has dentist HPI HPI Comments History of Present Illness Details History of Present Illness The patient is a 79-[facility] Former pt of Dr. Butcher. Has numerous complaints including episode of shortness of breath, dizziness in [place] several months prior and more recently when climbing stairs and lifting heavy object. Notes felt presyncopal. No chest pain currently. Also describes sensation that he has phlegm stuck in throat, also notes some submandibular gland discomfort. No fevers, no chills. Shortness of Breath: Episodes over several months, worsens with stairs/lifting. No chest pain. Dizzy spells in [place], improved with CoQ10. Dizziness: Started months ago, notably in [place], with lightheadedness affecting walking and carrying loads. Postnasal Drip: Persistent over two years. Symptoms include a runny nose and neck fullness, not alleviated by Remedios. Also notes increased rhinorrhea after eating. 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 Review of Systems - Respiratory: Denies chest pain, reports shortness of breath, especially with exertion - ENT: Reports postnasal drip, neck fullness, runny nose - Cardiovascular: Reports dizziness related to exertion - Neurological: Reports lightheadedness, denies persistent headaches Physical Exam - General- Blood pressure recorded at 132/62 - Head and Neck- No lymphadenopathy or gland swelling - Respiratory- Lungs clear to auscultation - Cardiovascular- soft murmur noted, carotid examined and unremarkable - GI- No abdominal tenderness, regular bowel sounds - Neck- No thyroid enlargement on palpation - Extremities- Mild edema; good pulses noted Assessment and Plan 1. Shortness of Breath - EKG done sinus rhytm, check BNP, lytes, cardiology consult scheduled.Can discuss echocardiogram with cardiology 2. Dizziness - encouraged increased hydration 3. Throat discomfort - Thyroid and neck ultrasound ordered, potential ENT referral. 4. Postnasal drip- try allerga a few hours prior to dinner. Follow up with protohistorian in [place] Discussion Notes I discussed with the patient the potential causes of his shortness of breath with exertion, presyncopal and dizzy sensation and plan for cardiac evaluation. The risks and benefits of different assessments, such as echocardiogram were outlined. We discussed the patient's medication regimen, focusing on proper timing for Remedios to relieve postnasal symptoms. Thyroid ultrasound also ordered. We considered possible future ENT consultation, dependent on ultrasound findings. The patient voiced an understanding of the plan and the need for follow-ups. Patient Instructions - Follow-up on thyroid and neck ultrasound results. - Ensure to drink 48-64 ounces of water daily. - Monitor shortness of breath; seek care if it worsens. - Maintain scheduled manager of hospital appointment. - Take Remedios two hours before eating. - Call radiology to verify scan dates. [facility] Medical History (Updated 12/17/24 @ 14:33 by Ana Hanson MD) Shortness of breath Throat discomfort Heart murmur Rhinitis Hypertension Hyperlipidemia Prediabetes GERD (gastroesophageal reflux disease) Surgical History (Updated 12/17/24 @ 14:30 by Ana Hanson MD) Hx of cholecystectomy Family History Mother AD (Alzheimer's disease) Father Heart disease Social History Housing: House Alcohol intake: current Alcohol intake frequency: a few times a week Patient Tobacco Use Status: Former Tobacco user Tobacco use type: Cigarette Years Smoked: quit about 36yo e-Cigarette/Vaping Use: Never Used service: Yes Current occupational status: retired Cognitive needs: No Hearing needs: No Vision needs: Yes (rx glasses) Questionnaire Thrive Questionnaire Date Thrive assessed: 11/24/24 AUDIT C Alcohol Use Questionnaire (AUDIT-C) 1. How often do you have a drink containing alcohol?: 2-3 times a week 2. How many drinks containing alcohol do you have on a typical day when you are drinking?: 1 or 2 3. How often do you have six or more drinks on one occasion?: Never Total Score: 3 CASA-7 AMB Questionnaire CASA-7 Date CASA - 7 assessed: 11/24/24 Source: Developed by Drs. Marin Orellana, Morenita Arellano, Steffen Knapp and colleagues, with an educational susana from [employer]. Physical exam (Primary Care) Vital Signs: Last Vital Signs Temp 97.5 F 12/17/24 08:51 Pulse 58 12/17/24 08:51 Resp 16 12/17/24 08:51 BP 132/62 12/17/24 09:48 Pulse Ox 98 12/17/24 08:51 Oxygen Delivery Method Room Air 12/17/24 08:51 BMI result Body Mass Index 36.5 Tobacco/Smoking Status: Tobacco use Status Tobacco use date assessed 12/17/24 12/17/24 09:00 Patient Tobacco Use Status Former Tobacco user 12/17/24 08:35 Tobacco use type Cigarette 12/17/24 09:00 e-Cigarette/Vaping Use Never Used 12/17/24 09:00 Thrive Assessment: Date of Thrive Assessment Date Thrive assessed 11/24/24 12/17/24 08:35 Coding Level of Care Code Est Pt Level 4 (28857) Complex EM visit Add On G2211 Diagnoses Shortness of breath R06.02 Hypertension I10 Throat discomfort R07.0 Prediabetes R73.03 Hyperlipidemia E78.5 Infrarenal abdominal aortic aneurysm (AAA) without rupture I71.43 Abdominal aorta location: infrarenal aorta Assessment & Plan Assessment & Plan (1) Shortness of breath: Comment: check bnp, lytes Code(s): R06.02 - Shortness of breath Category: Medical (2) Hypertension: Code(s): I10 - Essential (primary) hypertension Category: Medical (3) Throat discomfort: Code(s): R07.0 - Pain in throat Category: Medical (4) Prediabetes: Code(s): R73.03 - Prediabetes Category: Medical (5) Hyperlipidemia: Comment: continue statin Code(s): E78.5 - Hyperlipidemia, unspecified Category: Medical (6) AAA (abdominal aortic aneurysm) without rupture: Comment: see above, follow up with vascular Code(s): I71.40 - Abdominal aortic aneurysm, without rupture, unspecified Category: Medical Qualifiers: Abdominal aorta location: infrarenal aorta Qualified Code(s): I71.43 - Infrarenal abdominal aortic aneurysm, without rupture Plan Plan - Complete EKG, and lab tests. - Schedule thyroid and neck ultrasound, consider ENT referral after. - Armorer Technician follow-up arranged. Orders: Orders NT Pro B Type Natriuretic Pept Today I10 - Essential (primary) hypertension, R06.02 - Shortness of breath US thyroid Today R07.0 - Pain in throat AMB EKG-In Office Today R06.02 - Shortness of breath Basic Metabolic Panel Today I10 - Essential (primary) hypertension
[2024-12-17 08:51] VITALS: BP 140/70; PULSE 58; RESP 16; TEMP 36.4; O2SAT 98; BMI 36.5
[2024-12-17 09:48] VITALS: BP 132/62
== END 2024-12-17 10:07 | disposition home or self-care (01) ==
LOC: HO.HMCHD 08:47
PROVIDERS: PCP Internal Medicine; Visit Provider Internal Medicine
DX: R06.02 Shortness of breath (principal); I10 Essential (primary) hypertension; R07.0 Pain in throat; R73.03 Prediabetes; E78.5 Hyperlipidemia, unspecified; I71.43 Infrarenal abdominal aortic aneurysm, without rupture

== ENCOUNTER → 2024-12-17 08:47 | Outpatient (BNVA) | payer MEDICARE, SELFPAY | PROVIDERS: PCP Internal Medicine; Visit Provider Internal Medicine | DX: Z76.89 Persons encountering health services in other specified circumstances (principal); I10 Essential (primary) hypertension; R06.02 Shortness of breath; R07.0 Pain in throat; R73.03 Prediabetes; E78.5 Hyperlipidemia, unspecified; I71.43 Infrarenal abdominal aortic aneurysm, without rupture; N40.0 Benign prostatic hyperplasia without lower urinary tract symptoms; Z79.899 Other long term (current) drug therapy | CPT/HCPCS: 36415; 80048; 83880; 99212 ==

== ENCOUNTER 2024-12-17 10:14 | Outpatient (REF) | payer MEDICARE, SELFPAY ==
[2024-12-17 11:16] LABS: Anion Gap 10 (12-20); Blood Urea Nitrogen 16 mg/dL (9-16); Calcium 9.0 mg/dL (8.4-10.2); Carbon Dioxide 28 mmol/L (22-29); Chloride 108 mmol/L (96-108); Estimated Glomerular Filt Rate > 60; Potassium 4.1 mmol/L (3.3-5.1); Sodium 142 mmol/L (135-145)
[2024-12-17 11:22] LABS: NT Pro B Type Natriuretic Pept 53.5 pg/mL (<300)
== END 2024-12-17 10:15 | disposition home or self-care (01) ==
LOC: HO.LAB 10:14
PROVIDERS: Visit Provider Internal Medicine
DX: Z13.89 Encounter for screening for other disorder (principal)
CPT/HCPCS: 36415; 80048; 83880

== ENCOUNTER 2024-12-29 12:32 | Outpatient (AMB) | payer MEDICARE, SELFPAY ==
--- NOTE | 2024-12-29 12:42 | A.OFFVIS_ITS ---
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/Shortness of breath Intake Note: New patient saw cardiolgist in [place] was having some lightheadness but never was able to have testing has been feeling good since Accredited Pharmacy Technician Required: No Allergies Gadolinium-Containing Contrast Medi Allergy (Mild, Verified 12/17/24 08:34) Rash Medication List - Last Reconciled 12/29/24 by Campos Merida MD aspirin 162.5 mg PO 2XW atorvastatin 20 mg PO DAILY cholecalciferol (vitamin D3) 50 mcg PO DAILY clotrimazole-betamethasone 1-0.05 % 1 appl topical BID coQ10 (ubiquinol) (Qunol Rashawn CoQ10) 100 mg PO BID fexofenadine (Remedios Allergy) 180 mg PO DAILY losartan 50 mg PO DAILY magnesium glycinate 100 mg PO .QD ztmafuuh-drd-lwkqa-vit K-lycop 400-20-370 mcg (Men's 50 Plus Multivitamin) 1 tab PO DAILY polyethylene glycol 3350 (Miralax) 17 grams PO DAILY tamsulosin 0.4 mg PO BID HPI Comments Details: Thank you for referring Vivek in cardiology consultation today. Patient is 79-year-old male with prior history of hypertension, hyperlipidemia prediabetes. Recently diagnose abdominal aortic aneurysm with distal abdominal aorta measured at 5 cm being evaluated by vascular surgery for correct sizing with abdominal CTA and further intervention. Patient says that he lives in [place] for about 6 months and about 6 months ago while he was in [place] getting out of the car and doing some activity suddenly felt lightheaded and felt rapid heart rate and short of breath. He then waited for some time and then started walking again and felt the same symptoms. However after few minutes symptoms dissipated and he felt better. He does complain of exertional shortness of breath when he carries some weight up a flight of stairs. He said otherwise with a day-to-day activity has no symptoms. Denies any exertional chest pain. He denies any prolonged palpitation at rest. Denies ever having any prior cardiovascular history. He has been told that he has a murmur here takes all his medications regularly. Denies any orthopnea, PND, leg edema. [facility] Medical History Colon cancer screening (~12/22/24) Shortness of breath Throat discomfort Heart murmur Rhinitis Hypertension Hyperlipidemia Prediabetes GERD (gastroesophageal reflux disease) Surgical History Hx of cholecystectomy Family History Mother AD (Alzheimer's disease) Father Heart disease Social History Housing: House Alcohol intake: current Alcohol intake frequency: a few times a week Patient Tobacco Use Status: Former Tobacco user Tobacco use type: Cigarette Years Smoked: quit about 36yo e-Cigarette/Vaping Use: Never Used service: Yes Current occupational status: retired Cognitive needs: No Hearing needs: No Vision needs: Yes (rx glasses) Review of Systems Const Denies chills, Denies daytime sleepiness, Denies fatigue, Denies fever(s), Denies frequent falls, Denies poor appetite, Denies snoring, Denies stops breathing during sleep, Denies weakness, Denies weight gain and Denies weight loss Eyes Denies loss of vision ENT Denies dizziness and Denies hearing loss Card Denies chest pain, Denies claudication, Denies leg edema, Denies lightheadedness, Denies palpitations, Denies dyspnea, Denies dyspnea on exertion and Denies orthopnea Resp Denies cough, Denies excessive phlegm production, Denies dyspnea, Denies dyspnea on exertion, Denies snoring and Denies wheezing GI Denies abdominal pain, Denies hematochezia, Denies change in bowel habits, Denies nausea and Denies vomiting Denies dysuria and Denies urinary frequency Musc Denies arthralgias, Denies muscle weakness and Denies numbness Skin/Breast Denies nail changes and Denies rash Neuro Denies Abnormal speech present, Denies dizziness, Denies frequent falls, Denies loss of vision, Denies memory loss, Denies numbness and Denies weakness Psych Denies depression and Denies memory loss Endo Denies fatigue and Denies palpitations Suresh/Lymph Reports easy bruising and Reports other (anemia) Aller/Immun Denies wheezing Physical Exam Vital Signs: Last Vital Signs Pulse 63 12/29/24 12:43 BP 130/72 12/29/24 12:43 BMI result Body Mass Index 36.3 Const General: cooperative, comfortable, no acute distress, alert, awake and Physically active Nutritional Appearance: obese Orientation/consciousness: patient oriented x3 Limitations: no limitations HEENT Head: Yes normocephalic and Yes atraumatic Neck Neck: Yes trachea midline, Yes supple and Yes no JVD Resp Effort & Inspection: normal respiratory effort Auscultation: clear to auscultation bilaterally and diminished lung sounds Cardio Jugular venous distension: no JVD Rate: regular rate Rhythm: regular rhythm Heart sounds: S1 normal heart sound present, S2 normal heart sound present, no click, no gallops and Murmur heart sound present systolic early, decrescendo, crescendo and soft GI Inspection: Yes visible herniation Auscultation: normal bowel sounds Skin General skin exam: no rashes or lesions noted Neuro General: patient oriented x3 and no focal motor deficits Speech: No Abnormal speech present Extrem General: Yes no clubbing, cyanosis or edema Psych Appearance: grossly normal Assessment & Plan Assessment & Plan (1) Shortness of breath: Comment: check bnp, lytes Code(s): R06.02 - Shortness of breath Category: Medical Plan: Exertional shortness of breath and lightheadedness in this elderly gentleman with significant risk factors for atherosclerotic with presence of abdominal aortic aneurysm which puts him at high risk for underlying obstructive coronary artery disease. This was discussed with him. I would suggest him to undergo vasodilating myocardial perfusion imaging given his underlying abdominal aortic aneurysm to evaluate for myocardial ischemia. Also suggest an echocardiogram to evaluate LV systolic and diastolic function to evaluate for LV wall thickness as well as valvular abnormality especially given his systolic murmur which is suggestive of mild aortic stenosis. He requires aggressive risk factor modification. Currently on aspirin therapy. He is also on losartan therapy with well optimized blood pressure. He is currently on intermediate dose statin therapy and would strongly recommended to switch him to high-intensity statin therapy with either 40/80 mg of atorvastatin with target goal LDL less than 55 mg/dL. Management was discussed with him. He understands agrees. Follow up in the clinic in 6 weeks time, sooner PRN. Thank you for allowing me to partake in his care Orders: Orders CA lexiscan stress w elier Today R06.02 - Shortness of breath CA echo transthoracic complete Today R06.02 - Shortness of breath NM cardiolite stress test 2 Weeks R06.02 - Shortness of breath, R07.9 - Chest pain, unspecified Coding Level of Care Code New Pt Level 4 (31493) Complex EM visit Add On G2211 Diagnoses Shortness of breath R06.02
[2024-12-29 12:43] VITALS: BP 130/72; PULSE 63; BMI 36.3
--- OUTSIDE RECORDS SUMMARY | 2024-12-29 15:15 | XMS_ITS | Patient Health Record ---
Author Organization [facility] Address [address] [place] [address] Care Team Providers Care Hardscape Foreman Name Role Phone Hadley (RETIRED) Kwan SEALS Primary Care Provider Unavailable Marin Haynes Unavailable [phone] Reason For Referral No Information Plan Of Treatment No Information
== END 2024-12-29 13:13 | disposition home or self-care (01) ==
PROVIDERS: PCP Internal Medicine; Visit Provider Internal Medicine Cardiovascular Disease
DX: R06.02 Shortness of breath (principal)
CPT/HCPCS: 99204; G2211

== ENCOUNTER → 2024-12-29 12:32 | Outpatient (BNVA) | payer MEDICARE, SELFPAY | PROVIDERS: PCP Physician Assistant Medical; Visit Provider Internal Medicine Cardiovascular Disease | DX: R06.02 Shortness of breath (principal) | CPT/HCPCS: 99202 ==

== ENCOUNTER 2025-01-01 11:23 | Outpatient (REF) | payer MEDICARE, SELFPAY ==
--- NOTE | ~2025-01-01 | US_ITS ---
CLINICAL HISTORY: R39.12 - Poor urinary stream US Renal Comparison: None provided Findings: Right kidney normal size and echotexture, 12.3 cm length. Left kidney normal size and echotexture, 12.5 cm length. No collecting system dilatation of either kidney. Normal color Doppler. Urinary bladder is unremarkable. Prevoid volume 457 mL. Postvoid volume 48 mL. Bilateral ureteral jets are visualized. IMPRESSION: 1. No acute findings. This document has been electronically signed by: Terry Jeffery MD on 01/03/2025 09:09:00
--- OUTSIDE RECORDS SUMMARY | 2025-01-01 13:43 | XMS_ITS | Patient Health Record ---
Author Organization [facility] Address [address] [place] [address] Care Team Providers Care Shopper Name Role Phone Hadley (RETIRED) Kwan SEALS Primary Care Provider Unavailable Marin Haynes Unavailable [phone] Reason For Referral No Information Plan Of Treatment No Information
== END 2025-01-01 11:24 | disposition home or self-care (01) ==
LOC: HO.US 11:23
PROVIDERS: PCP Internal Medicine; Visit Provider Nurse Practitioner Family
DX: R39.12 Poor urinary stream (principal)
CPT/HCPCS: 76770

== ENCOUNTER → 2025-01-01 11:25 | Outpatient (BNV) | payer MEDICARE, SELFPAY | PROVIDERS: PCP Internal Medicine; Visit Provider Specialist | DX: R39.12 Poor urinary stream (principal) | CPT/HCPCS: 76770 ==

== ENCOUNTER 2025-01-06 11:23 | Outpatient (REF) | payer MEDICARE, SELFPAY ==
--- NOTE | ~2025-01-06 | US_ITS ---
EXAMINATION: US THYROID CLINICAL INFORMATION: R07.0. COMPARISON: None available. TECHNIQUE: Linear transducer grayscale and color Doppler examination with attention to the region of the thyroid. FINDINGS: SIZE: Measurements of the thyroid lobes and nodules are given in sagittal, anteroposterior and transverse dimensions respectively. Right Thyroid Lobe: 4.6 x 1.9 x 1.9 cm, volume 8.9 mL. Parenchyma: The gland echotexture is heterogeneous.. Thyroid vascularity is normal. Left Thyroid Lobe: 4.4 x 1.7 x 1.4 cm, volume 5.3 mL. Parenchyma: The gland echotexture is heterogeneous. Thyroid vascularity is normal. Isthmus: 0.8 cm in maximum AP dimension. Estimated total number of nodules greater than or equal to 1 cm: 2. Fire Technology Instructor nodules are described as follows: 1. Location: Lower pole left lobe. Size: 1.0 x 0.9 x 1.0 cm, volume 0.5 mL. Nodule characteristics: Composition: Solid (2). Echogenicity: Hyperechoic (1). Shape: Not taller than wide (0). Margins: Smooth (0). Echogenic Foci: None (0). ACR TI-RADS total points: 3 ACR TI-RADS category: 3 2. Location: Isthmus. Size: 1.0 x 0.9 x 0.9 cm, volume 0.4 mL. Nodule characteristics: Composition: Solid (2). Echogenicity: Hyperechoic (1). Shape: Not taller than wide (0). Margins: Ill-defined (0). Echogenic Foci: None (0). ACR TI-RADS total points: 3 ACR TI-RADS category: 3 3. Location: Upper pole, right lobe. Size: 0.4 0.3 x 0.3 cm, volume 0.01 mL. Nodule characteristics: Composition: Solid/almost completely solid (2). Echogenicity: Hyperechoic (1). Shape: Not taller than wide (0). Margins: Smooth (0). Echogenic Foci: None (0). ACR TI-RADS total points: 3 ACR TI-RADS category: 3 4. Location: Lower pole, right lobe. Size: 0.4 x 0.3 x 0.4 cm, volume 0.03 mL. Nodule characteristics: Composition: Undetermined (2) Echogenicity: Undetermined (1) Shape: Not taller than wide (0). Margins: Smooth (0). Echogenic Foci: None (0). ACR TI-RADS total points: 3 ACR TI-RADS category: 3 NODES: No lymphadenopathy is seen in the tissue surrounding the thyroid gland. US/US thyroid IMPRESSION: ACR TI RADS category 3. ACR TI-RADS RECOMMENDATION REFERENCE: Ultrasound-guided fine-needle aspiration, followup ultrasound, no further follow up. * TR1 (0 point) and TR2 (2 points): No FNA or follow up. * TR3 (3 points): FNA if more than or equal to 2.5 cm in maximum dimension, followup ultrasound in 1, 3 and 5 years if 1.5 to 2.4 cm in maximum dimension. * TR4 (4-6 points): FNA if more than or equal to 1.5 cm in maximum dimension, followup ultrasound in 1, 2, 3 and 5 years if 1 to 1.4 cm in maximum dimension. * TR5 (more than or equal to 7 points): FNA if more than or equal to 1 cm in maximum dimension, followup ultrasound every year for 5 years if 0.5 to 0.9 cm in maximum dimension. * TR3, TR4 or TR5 nodules that are below the size threshold for followup receive no follow up. Electronically signed by: Christopher Beltran MD 01/06/2025 12:16 PM BELEN
--- OUTSIDE RECORDS SUMMARY | 2025-01-06 14:08 | XMS_ITS | Patient Health Record ---
Author Organization [facility] Address [address] [place] [address] Care Team Providers Care Fixed Route Bus Operator Name Role Phone Hadley (RETIRED) Kwan SEALS Primary Care Provider Unavailable Marin Haynes Unavailable [phone] Reason For Referral No Information Plan Of Treatment No Information
== END 2025-01-06 11:24 | disposition home or self-care (01) ==
LOC: HO.US 11:23
PROVIDERS: PCP Internal Medicine; Visit Provider Internal Medicine
DX: R07.0 Pain in throat (principal)
CPT/HCPCS: 76536

== ENCOUNTER → 2025-01-06 11:24 | Outpatient (BNV) | payer MEDICARE, SELFPAY | PROVIDERS: PCP Internal Medicine; Visit Provider Radiology Diagnostic Radiology | DX: R07.0 Pain in throat (principal) | CPT/HCPCS: 76536 ==

== ENCOUNTER 2025-01-08 15:47 | Outpatient (AMB) | payer MEDICARE, SELFPAY ==
--- NOTE | 2025-01-08 15:48 | A.OFFPC_ITS ---
Intake Visit Reasons: Discuss Results Allergies Gadolinium-Containing Contrast Medi Allergy (Mild, Verified 12/17/24 08:34) Rash Tobacco use date assessed: 12/17/24 Dental Screening Dental Screen Date: 12/17/24 HPI HPI Comments History of Present Illness Details History of Present Illness The patient is a 79-year-old male presenting to discuss results and new complaints. Thyroid Nodules: A prior thyroid ultrasound revealed small nodules, for which a follow-up in one year was recommended. Allergic Rhinitis: The patient reports a history of rhinorrhea that has not improved with adjustments to his Remedios timing. He also endorses ongoing phlegm buildup and plans to see his manager non profit in February, as well as an ENT specialist. Fall: Approximately five days ago, the patient fell in his backyard while handling a hose, landing first on his right side and back, then subsequently on his left side, hitting his forehead. While the initial pain has subsided, he continues to experience increased nausea and discomfort in his left abdominal region. Notes he had not mentioned this to nursing yesterday. Social History: - The patient will be traveling to [facility] during Winter months. Review of Systems - Gastrointestinal: Reports increased na usea and discomfort in the left abdominal region. - HEENT: Reports rhinorrhea and phlegm b uildup.. Assessment and Plan 1. Fall With Abdominal Pain And Nausea - The patient was advised to go to an [facility] facility for evaluation of his abdomen and to assess for potential rib injuries. - The patient will follow up after the [facility] visit. 2. Thyroid Nodules - A follow-up thyroid ultrasound is gem mmended in one year. 3. Allergic Rhinitis And Phlegm - The patient will see his manager non profit in February while in [place] for his persistent symptoms. - The patient will see an ENT specialist in either [place] or [place]. Discussion Notes I reviewed the results of the patient's thyroid ultrasound, which showed small nodules requiring a one-year follow-up. We discussed his rhinorrhea, which have not improved with Remedios, and he confirmed his plans to see an manager non profit and an ENT. Given the patient's report of a fall five days ago with subsequent increased nausea and left abdominal discomfort, I advised him to go to an urgent care for evaluation of his abdomen and to assess for any potential rib injuries. The patient agreed and will follow up with my office after his urgent care visit. Patient Instructions - Go to an urgent care center to get you r abdomen and ribs checked because of your recent fall. - Please follow up with our office after your urgent care visit. - You plan to see your manager non profit in [place]. - You will also see an Ear, Nose, and Th roat (ENT) specialist. [facility] Medical History (Updated 01/08/25 @ 17:57 by Ana Hanson MD) Fall Thyroid nodule Colon cancer screening (~12/22/24) Shortness of breath Throat discomfort Heart murmur Rhinitis Hypertension Hyperlipidemia Prediabetes GERD (gastroesophageal reflux disease) Surgical History Hx of cholecystectomy Family History Mother AD (Alzheimer's disease) Father Heart disease Social History Housing: House Alcohol intake: current Alcohol intake frequency: a few times a week Patient Tobacco Use Status: Former Tobacco user Tobacco use type: Cigarette Years Smoked: quit about 36yo e-Cigarette/Vaping Use: Never Used service: Yes Current occupational status: retired Cognitive needs: No Hearing needs: No Vision needs: Yes (rx glasses) Questionnaire Thrive Questionnaire Date Thrive assessed: 11/24/24 CASA-7 AMB Questionnaire CASA-7 Date CASA - 7 assessed: 11/24/24 Source: Developed by Drs. Marin Orellana, Morenita Arellano, Steffen Knapp and colleagues, with an educational susana from [employer]. Physical exam (Primary Care) Tobacco/Smoking Status: Tobacco use Status Tobacco use date assessed 12/17/24 01/08/25 15:48 Patient Tobacco Use Status Former Tobacco user 01/08/25 15:48 Tobacco use type Cigarette 01/08/25 15:48 e-Cigarette/Vaping Use Never Used 01/08/25 15:48 Thrive Assessment: Date of Thrive Assessment Date Thrive assessed 11/24/24 01/08/25 15:48 Telehealth Telehealth Telehealth Platform: Telephone (office) Location of provider rendering services: practice address Location of patient: address on file Patient Identification confirmed using: Name, : Yes Telehealth method: voice only Patient verbally consented to treatment: Yes Minutes spent on Phone/Video with Pt.: 15 Coding Level of Care Code Tele New Pt Level 2 (09899) Complex EM visit Add On G2211 Diagnoses Rhinitis, unspecified type J31.0 Rhinitis type: unspecified Thyroid nodule E04.1 Fall, initial encounter W19.XXXA Encounter type: initial encounter Assessment & Plan Assessment & Plan (1) Rhinitis: Code(s): J31.0 - Chronic rhinitis Category: Medical Qualifiers: Rhinitis type: unspecified Qualified Code(s): J31.0 - Chronic rhinitis (2) Thyroid nodule: Code(s): E04.1 - Nontoxic single thyroid nodule Category: Medical (3) Fall: Code(s): W19.XXXA - Unspecified fall, initial encounter Category: Medical Qualifiers: Encounter type: initial encounter Qualified Code(s): W19.XXXA - Unspecified fall, initial encounter Plan see above
== END 2025-01-08 16:20 | disposition home or self-care (01) ==
LOC: HO.HMCHD 15:47
PROVIDERS: PCP Internal Medicine; Visit Provider Internal Medicine
DX: J31.0 Chronic rhinitis (principal); E04.1 Nontoxic single thyroid nodule; W19.XXXA Unspecified fall, initial encounter

== ENCOUNTER 2025-01-09 10:44 | Outpatient (AMB) | payer MEDICARE, SELFPAY ==
[2025-01-09 10:46] VITALS: BP 114/62; PULSE 74; RESP 16; TEMP 36.9; O2SAT 98; BMI 35.8
--- NOTE | 2025-01-09 10:46 | MHC.OFFWIV ---
Intake Vital Signs 01/09/25 10:46 Height 5 ft 6 in Weight 222 lb BMI 35.8 BP 114/62 Blood Pressure Location Rt brachial Position Sitting Respiration 16 Pulse 74 Temp 98.4 F Temp Source Oral Pulse Oximetry (%) 98 Oxygen Delivery Method Room Air Intake Visit Reasons: EP Lower abdomen and rib pain after fall Intake Note: Pt is here today c/o lower abdomen and rib pain due to a fall at home 01/03/25: pt states hit his head on the floor Patient Tobacco Use Status: Former Tobacco user Allergies Gadolinium-Containing Contrast Medi Allergy (Mild, Verified 01/09/25 11:08) Rash Medication List - Last Reconciled 01/09/25 by Maria Guadalupe Edmondson, ADMINISTRATIVE OFFICE MANAGER-BC aspirin 162.5 mg PO 2XW atorvastatin 20 mg PO DAILY cholecalciferol (vitamin D3) 50 mcg PO DAILY clotrimazole-betamethasone 1-0.05 % 1 appl topical BID coQ10 (ubiquinol) (Qunol Rashawn CoQ10) 100 mg PO ONCE fexofenadine (Remedios Allergy) 180 mg PO DAILY losartan 50 mg PO DAILY magnesium glycinate 100 mg PO .QD jqlknrcb-wgt-ifkwn-vit K-lycop 400-20-370 mcg (Men's 50 Plus Multivitamin) 1 tab PO DAILY polyethylene glycol 3350 (Miralax) 17 grams PO DAILY tamsulosin 0.4 mg PO BID HPI HPI Comments History of Present Illness Details Chief Complaint A 79-year-old male presents with complaints of lower abdomen and rib pain after a fall on January 03. History The patient is a 79-year-old male presenting for evaluation of lower abdominal and rib pain following a fall. Abdominal pain and traumatic fall: - The patient had a fall six days ago on January 03 after tripping over a fire pit while walking backward. - During the fall, he hit his head on the ground but did not lose consciousness. - He landed on his right side, sustaining scrapes to his right leg and elbow. - The following morning, he developed left-sided abdominal pain despite not hitting that side, accompanied by nausea for two days. - He also experienced abdominal distension and gurgling sounds. - Three days after the fall, he had some loose stools, but this has since resolved, and he denies any blood in the stool. - The abdominal distension and pain are now improving but were exacerbated by coughing. - Something is not right in there . - He is not anticoagulated, other than ASA Abdominal Aortic Aneurysm: - The patient has a known abdominal aortic aneurysm measuring 5 cm per a recent ultrasound. - He has a CT scan scheduled for January 25 to further evaluate the aneurysm. Hernia: - The patient has a history of an abdominal hernia, which he notes is in the central abdomen and bulges with activities like sit-ups. - He reports it has never required surgical intervention and does not typically bother him. 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 - Neurological: Reports hitting his head during the fall. - Gastrointestinal: Reports left-sided abdominal pain, which worsened with coughing, nausea for two days, abdominal distension, and gurgling sounds after the fall. Reports a brief episode of loose stools that has since resolved. Denies blood in stool. - Genitourinary: Reports normal urination. Denies hematuria. - Integumentary: Reports scrapes on the right leg and elbow. Results - Ultrasound: Recent imaging identified a 5 cm abdominal aortic aneurysm. Medical Decision Making The patient is a 79-year-old male on daily aspirin who presented with new-onset left-sided abdominal pain and distension following a fall six days prior. Physical exam is notable for tenderness and a palpable abnormality in the left abdomen. Given his history of a 5 cm abdominal aortic aneurysm, there is significant concern for an acute abdominal process, such as a leaking aneurysm, despite the trauma being several days ago. Other considerations include a new traumatic hernia or other intra-abdominal injury. A plain film x-ray is insufficient for evaluation. Due to the inability to order an emergent CT scan from the walk-in clinic and the risk of significant underlying pathology, the patient was strongly advised to proceed directly to the emergency department for an abdominal CT scan to rule out a life-threatening condition. Plan 1. Abdominal Pain Following Traumatic Fall - The patient presents with new-onset left-sided abdominal pain, distension, and nausea following a fall. - Physical exam reveals tenderness and a palpable abnormality in the left abdomen. - Given the patient's history of a 5 cm AAA and daily aspirin use, there is concern for an acute intra-abdominal process such as a leaking aneurysm or traumatic hernia. - The patient is advised to go to the [facility] emergency room for an urgent CT scan of the abdomen to rule out acute pathology. 2. Abdominal Aortic Aneurysm - The patient has a known 5 cm AAA, which increases the risk of complications from his recent fall. - The recommended urgent CT scan in the ER will also serve to evaluate the status of the aneurysm for any acute changes, such as leakage. Patient Instructions - Go to the [facility] emergency room today for further evaluation of your stomach. - When you get to the emergency room, inform them that you were seen at the walk-in clinic today and were told to come for evaluation. - Tell the emergency room staff about your fall and the new abdominal pain you are experiencing on your left side. - They will likely perform a CT scan (a picture) of your belly to make sure nothing serious is going on. - The results of the scan will be sent to your primary care doctor, Dr. Hanson. Consent Patient was informed and verbally consented to the use of an ambient scribe for clinic note documentation during this visit. Total time spent caring for the patient today was 30 minutes. This includes time spent before the visit reviewing the chart, time spent during the visit, and time spent after the visit on documentation, reviewing laboratory results, diagnostic imaging, medications, performing a medically necessary evaluation, counseling on diagnoses, care coordination, ordering appropriate tests, ordering appropriate medications, review of tests performed by other providers, reporting test results with the patient, communication with other healthcare providers. [facility] Medical History (Updated 01/09/25 @ 11:21 by Maria Guadalupe Edmondson, [facility]) Colon cancer screening (~12/22/24) Fall GERD (gastroesophageal reflux disease) Heart murmur Hyperlipidemia Hypertension Prediabetes Rhinitis Shortness of breath Throat discomfort Thyroid nodule Surgical History Hx of cholecystectomy Family History Mother AD (Alzheimer's disease) Father Heart disease Social History Housing: House Alcohol intake: current Alcohol intake frequency: a few times a week Patient Tobacco Use Status: Former Tobacco user Tobacco use type: Cigarette Years Smoked: quit about 36yo e-Cigarette/Vaping Use: Never Used service: Yes Current occupational status: retired Cognitive needs: No Hearing needs: No Vision needs: Yes (rx glasses) Physical Exam Vital Signs: Last Vital Signs Temp 98.4 F 01/09/25 10:46 Pulse 74 01/09/25 10:46 Resp 16 01/09/25 10:46 BP 114/62 01/09/25 10:46 Pulse Ox 98 01/09/25 10:46 Oxygen Delivery Method Room Air 01/09/25 10:46 BMI result Body Mass Index 35.8 GI Inspection: Yes distended and Yes obesity Palpation (GI): Soft to palpation and Tenderness to palpation present (GI) in the LLQ and periumbilically Percussion: Yes Fluid wave present and Yes tympanic to percussion Auscultation: Hypoactive bowel sounds present Abdomen image:  1. chronic hernia present w/ valsalva 2. TTP, with ?? hernia in this area Abd is round, protrubent with visible veins, appears hepatic but patient denies any cirrhosis or the like. Assessment & Plan Assessment & Plan (1) Fall: Code(s): W19.XXXA - Unspecified fall, initial encounter Qualifiers: Encounter type: initial encounter Qualified Code(s): W19.XXXA - Unspecified fall, initial encounter (2) AAA (abdominal aortic aneurysm) without rupture: Comment: see above, follow up with vascular Code(s): I71.40 - Abdominal aortic aneurysm, without rupture, unspecified Qualifiers: Abdominal aorta location: infrarenal aorta Qualified Code(s): I71.43 - Infrarenal abdominal aortic aneurysm, without rupture (3) Left-sided abdominal pain of unknown etiology: Code(s): R10.9 - Unspecified abdominal pain (4) Abdominal hernia: Code(s): K46.9 - Unspecified abdominal hernia without obstruction or gangrene Plan . Coding Level of Care Code Est Pt Level 4 (45967) Diagnoses Fall, initial encounter W19.XXXA Encounter type: initial encounter Infrarenal abdominal aortic aneurysm (AAA) without rupture I71.43 Abdominal aorta location: infrarenal aorta Left-sided abdominal pain of unknown etiology R10.9 Abdominal hernia K46.9
== END 2025-01-09 13:38 | disposition home or self-care (01) ==
PROVIDERS: PCP Internal Medicine; Visit Provider Nurse Practitioner Family
DX: W19.XXXA Unspecified fall, initial encounter (principal); I71.43 Infrarenal abdominal aortic aneurysm, without rupture; R10.9 Unspecified abdominal pain; K46.9 Unspecified abdominal hernia without obstruction or gangrene

== ENCOUNTER → 2025-01-09 10:44 | Outpatient (BNVA) | payer MEDICARE, SELFPAY | PROVIDERS: PCP Internal Medicine; Visit Provider Nurse Practitioner Family | DX: I71.43 Infrarenal abdominal aortic aneurysm, without rupture (principal); R10.9 Unspecified abdominal pain; K46.9 Unspecified abdominal hernia without obstruction or gangrene; Z91.81 History of falling | CPT/HCPCS: 99212 ==

== ENCOUNTER 2025-01-10 08:32 | Emergency (ER) | payer MEDICARE, SELFPAY ==
--- NOTE | ~2025-01-10 | CT_ITS ---
CLINICAL HISTORY: fall, +head strike CT cervical spine without contrast Comparison: None provided Findings: Cervical spine straightening. Normal alignment without acute fracture. Multilevel cervical spine degenerative changes. Unremarkable prevertebral soft tissues. Left maxillary sinus mucosal thickening. For the upper thoracic findings please refer to the same-day chest CT report. Atherosclerotic calcifications. IMPRESSION: No acute fracture. This document has been electronically signed by: eL Lane MD on 01/10/2025 12:59:56
--- NOTE | ~2025-01-10 | CT_ITS ---
CLINICAL HISTORY: hx of AAA, recent fall , ALL IMAGES UNDER CTA ABDOMEN CT angiography chest, abdomen and pelvis with contrast. 3D Postprocessing. Comparison: None provided Findings: The heart size is normal. No aortoiliac dissection. Ectatic ascending thoracic aorta measuring up to 41 mm in the axial plane. Subcentimeter hypodense left thyroid lobe nodule. Unremarkable mediastinum. Mild bilateral dependent lung atelectasis. No lung infiltrate, effusion, or pneumothorax. Fusiform infrarenal abdominal aortic aneurysm measuring up to 4 x 5 cm in the axial plane with up to 16 mm thick mural thrombus (this aneurysm also measured up to 4 x5 cm on the 11/23/2024 ultrasound). Mild splenomegaly measuring 13.2 cm in anteroposterior dimension. Cholecystectomy. Simple right renal cyst. No hydronephrosis or urinary tract stone. Mild colonic diverticulosis without diverticulitis. No bowel obstruction. Normal appendix. Enlarged prostate measuring 51 mm in width. Surgical clip posterior to the right seminal vesicle. Small bilateral fat containing uncomplicated umbilical hernias. Rest of the abdominopelvic viscera are unremarkable. No acute fracture. Spinal degenerative changes. IMPRESSION: 1. No aortoiliac dissection. 2. Fusiform infrarenal abdominal aortic aneurysm measuring up to 4 x 5 cm in the axial plane with up to 16 mm thick mural thrombus (this aneurysm also measured up to 4 x5 cm on the 11/23/2024 ultrasound). 3. Ectatic ascending thoracic aorta measuring up to 41 mm in the axial plane. This document has been electronically signed by: Le Lane MD on 01/10/2025 13:15:39
--- NOTE | ~2025-01-10 | CT_ITS ---
CLINICAL HISTORY: fall, +head strike CT head without contrast Comparison: None provided Findings: No intra-axial mass, midline shift, hydrocephalus, or acute hemorrhage. Mild age-related cerebral hemispheric white matter ischemic changes. Mild mucosal thickening in some of the paranasal sinuses. The orbits are within normal limits. No skull fracture. IMPRESSION: 1. No acute intracranial findings. This document has been electronically signed by: Le Lane MD on 01/10/2025 12:36:42
--- NOTE | ~2025-01-10 | CT_ITS ---
CLINICAL HISTORY: hx of AAA, recent fall, LLQ pain ALL IMAGES UNDER CTA ABDOMEN CT angiography chest, abdomen and pelvis with contrast. 3D Postprocessing. Comparison: None provided Findings: The heart size is normal. No aortoiliac dissection. Ectatic ascending thoracic aorta measuring up to 41 mm in the axial plane. Subcentimeter hypodense left thyroid lobe nodule. Unremarkable mediastinum. Mild bilateral dependent lung atelectasis. No lung infiltrate, effusion, or pneumothorax. Fusiform infrarenal abdominal aortic aneurysm measuring up to 4 x 5 cm in the axial plane with up to 16 mm thick mural thrombus (this aneurysm also measured up to 4 x5 cm on the 11/23/2024 ultrasound). Mild splenomegaly measuring 13.2 cm in anteroposterior dimension. Cholecystectomy. Simple right renal cyst. No hydronephrosis or urinary tract stone. Mild colonic diverticulosis without diverticulitis. No bowel obstruction. Normal appendix. Enlarged prostate measuring 51 mm in width. Surgical clip posterior to the right seminal vesicle. Small bilateral fat containing uncomplicated umbilical hernias. Rest of the abdominopelvic viscera are unremarkable. No acute fracture. Spinal degenerative changes. IMPRESSION: 1. No aortoiliac dissection. 2. Fusiform infrarenal abdominal aortic aneurysm measuring up to 4 x 5 cm in the axial plane with up to 16 mm thick mural thrombus (this aneurysm also measured up to 4 x5 cm on the 11/23/2024 ultrasound). 3. Ectatic ascending thoracic aorta measuring up to 41 mm in the axial plane. This document has been electronically signed by: Le Lane MD on 01/10/2025 13:33:53
[2025-01-10 08:35] VITALS: BP 143/74; PULSE 64; RESP 18; TEMP 36.6; O2SAT 97; BMI 35.7
--- OUTSIDE RECORDS SUMMARY | 2025-01-10 08:56 | XMS_ITS | Patient Health Record ---
Author Organization [facility] Address [address] [place] [address] Care Team Providers Care Traffic Engineer Name Role Phone Hadley (RETIRED) [facility] Primary Care Provider Unavailable Marin Haynes Unavailable [phone] Reason For Referral No Information Plan Of Treatment No Information
--- NOTE | 2025-01-10 09:22 | ED.ABDPAIN ---
HPI - Abdominal Pain General Chief Complaint: Abdominal Pain Stated Complaint: Stomach Pain Time Seen by Provider: 01/10/25 09:21 Source: patient and RN notes reviewed Mode of arrival: ambulatory Limitations: no limitations History of Present Illness ED Provider: Elidia Zamarripa PA-C HPI narrative: This is a [id number], with a hx of AAA, HLD, HTN, GERD, thyroid nodule, who presents to the emergency department with a complaint of left lower quadrant pain which has been ongoing for several weeks. Patient states 1 week ago he accidentally tripped over a fire pit and landed onto right hip and shoulder and struck his head. He denies loss of consciousness. He states that over the next 2-3 days after this fall he has had persistent nausea, abdominal bloating, diffuse abdominal pain, and a dull ache overlying the left flank. He states that over the last several days his symptoms have improved, in his nausea has since resolved. He does report some residual mild abdominal achiness, which he notices more at night. He states that he has had this ongoing abdominal pain over the last week, he states that this has not worsened since the fall. He also reports that over the last several months he has been monitoring his heart rate using an application on his phone, which at time shows ?unclassified tracings?, he denies any chest pain or shortness for breath. He states that he felt as though he had palpitations last night. He denies any vision changes since the fall. He does report increased urination. Denies any severe headache, dizziness, vomiting. Does report several episodes of diarrhea, last bowel movement was yesterday which was normal. He was sent to the emergency room from urgent care yesterday due to the fall, and requesting to ensure that the AAA has not progressed, worsened, or started to leak. He is not on anticoagulation. No other complaints or concerns at this time. MD elicited complaint: abdominal pain and flank pain Pain Consistency: constant Location: LLQ and L flank Severity: moderate Quality: aching Radiation: LLQ Exacerbating factors: movement Relieving factors: nothing Associated symptoms: nausea Related Data Home Medications ?Medication ?Instructions ?Recorded ?Confirmed aspirin 325 mg tablet 162.5 mg PO 2XW 08/27/24 01/09/25 atorvastatin 20 mg tablet 20 mg PO DAILY 08/27/24 01/09/25 losartan 50 mg tablet 50 mg PO DAILY 08/27/24 01/09/25 adbyerdobfuj-fac-uhead acid-vit 1 tab PO DAILY 08/27/24 01/09/25 K-lycop 400 mcg-20 mcg-370 mcg tablet (Men's 50 Plus Multivitamin) tamsulosin 0.4 mg capsule 0.4 mg PO BID 08/27/24 01/09/25 cholecalciferol (vitamin D3) 50 50 mcg PO DAILY 12/17/24 01/09/25 mcg (2,000 unit) capsule clotrimazole-betamethasone 1 1 appl topical BID 12/17/24 01/09/25 %-0.05 % topical cream magnesium glycinate 100 mg PO .QD 12/17/24 01/09/25 polyethylene glycol 3350 17 17 g PO DAILY 12/17/24 01/09/25 gram/dose oral powder (Miralax) coQ10 (ubiquinol) 100 mg capsule 100 mg PO ONCE 01/09/25 01/09/25 (Qunol Rashawn CoQ10) Previous Rx's ?Medication ?Instructions ?Recorded fexofenadine 180 mg tablet 180 mg PO DAILY #90 tabs 11/24/24 (Remedios Allergy) cefuroxime axetil 500 mg tablet 500 mg PO BID 7 days #14 tabs 01/10/25 Allergies Allergy/AdvReac Type Severity Reaction Status Date / Time Gadolinium-Containing Allergy Mild Rash Verified 01/10/25 08:40 Contrast Medi Review of Systems Review of Systems Constitutional : No Fever, No Chills ENT/Mouth : No sore throat, No Rhinorrhea Eyes: No Eye Pain, No Swelling, No Redness Cardiovascular : No Chest Pain, No SOB Respiratory : No Cough, No Sputum Gastrointestinal : No Nausea, No Vomiting, No Diarrhea, No abdominal Pain Genitourinary : No Dysuria, No Hematuria Musculoskeletal : No joint pain, No Myalgias, No Joint Swelling Skin : No Skin Lesions Neuro : No Weakness, No Numbness, No Headache All other systems reviewed and are negative Yes all other systems are reviewed and are negative Constitutional: Reports as per [facility] Past Medical History Medical History (Updated 01/10/25 @ 14:00 by MICHELLE Cerna) Fall Thyroid nodule Colon cancer screening (~12/22/24) Shortness of breath Throat discomfort Heart murmur Rhinitis Hypertension Hyperlipidemia Prediabetes GERD (gastroesophageal reflux disease) Surgical History Hx of cholecystectomy Family History Family History Mother AD (Alzheimer's disease) Father Heart disease Social History Social History Housing: House Alcohol intake: current Alcohol intake frequency: a few times a week Patient Tobacco Use Status: Former Tobacco user Tobacco use type: Cigarette Years Smoked: quit about 36yo e-Cigarette/Vaping Use: Never Used service: Yes Current occupational status: retired Cognitive needs: No Hearing needs: No Vision needs: Yes (rx glasses) Physical Exam ED Vital Signs: Vital Signs - 24 hr 01/10/25 08:35 01/10/25 09:52 01/10/25 14:04 Temperature 97.9 F 97.2 F 97.2 F Pulse Rate 64 61 61 Respiratory Rate 18 18 18 Blood Pressure 143/74 H 129/67 129/67 Pulse Oximetry 97 96 96 Oxygen Delivery Method Room Air Room Air Room Air BMI result Body Mass Index 35.7 Const General: cooperative, comfortable and no acute distress Orientation/consciousness: patient oriented x3 Limitations: no limitations HENMT Head: Yes normal to inspection, Yes normocephalic and Yes atraumatic Ears: hearing grossly normal bilaterally General nose exam: Normal external nose present Face and sinus: Yes normal facial exam Mouth: Normal oral and palatal mucosa present, oropharynx normal and moist mucous membranes Throat: Yes posterior oropharynx normal Eyes General: appearance normal, both eyes and all related structures Eyelids: Yes eyelids normal Conjunctivae: conjunctivae normal Sclerae: sclerae normal Pupils: Equal, round and reactive pupils present EOM: EOMs intact bilaterally Neck Neck: Yes normal visual inspection, Yes full ROM and Yes no lymphadenopathy Lymphatic: no lymphadenopathy noted Chest Chest palpation & inspection: normal inspection of the chest Resp Effort & Inspection: normal respiratory effort and able to speak in complete sentences Auscultation: clear to auscultation bilaterally, no crackles, no rales, no rhonchi and no wheezes Cardio Rate: regular rate Rhythm: regular rhythm Heart sounds: S1 normal heart sound present and S2 normal heart sound present GI Other: Abdomen is soft, with tenderness palpation in the left lower quadrant extending into the left flank. No CVA tenderness. No rebound or guarding. Inspection: Yes normal to inspection Skin General skin exam: no rashes or lesions noted Trauma: no lacerations or abrasions Wounds: no wounds Neuro General: patient oriented x3 and moves all extremities Cranial nerves: Yes Equal, round and reactive pupils present Extrem General: Yes normal to inspection Right upper extremity: normal to inspection Left upper extremity: normal to inspection Right lower extremity: normal to inspection Left lower extremity: normal to inspection Medical Decision Making Medical Decision Making MDM Narrative: This is a 79-year-old male who presents emergency department status post mechanical fall which occurred 1 week ago, head strike without LOC. 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 TMs have been improving but persistent. Patient is well-appearing, appears to be under no acute distress. He is neurologically intact with no focal deficits on examination. Given positive head strike and age, will obtain CT to rule out any intracranial process. Also fall with abdominal pain, will obtain CTA to rule out any complications especially with large AAA. Plan: CBC, BNP, lipase, CT head, neck, and CTA. Patient made NPO until imaging is completed and results have been reviewed. 12:07 PM 01/10/2025 (Elidia Zamarripa PA-C): Labs returned, he has no leukocytosis, stable H&H, chemistry revealing no significant electrolyte derangement. T bili 1.1, he has no chest pain or shortness of breath, troponin 4.6. Urine with moderate leuk esterases and wbc's, no squamous cells. Findings concerning for possible UTI. Awaiting CT report. 1:32 PM 01/10/2025 (Elidia Zamarripa PA-C): Pt wanting to sign AMA prior to CT imaging returning. 2:00 PM 01/10/2025 (Elidia Zamarripa PA-C): Patient change his mind and stayed for CT imaging to returned. 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 Does have a descending thoracic aorta measuring up to 41 mm in the axial plane. I discussed this with Dr. Zafar, vascular surgeon, who recommends outpatient follow-up. Patient is feeling well, no other current concerns. He does have mild splenomegaly, all right renal cyst, diverticulosis, as well as enlarged prostate. Discussed all these incidental findings with patient. He does have evidence of a urinary tract infection, therefore treated with antibiotics. Given strict return precautions. He understands and agrees with plan. Patient stable for discharge. Differential Diagnosis Differential Diagnoses: The differential diagnosis associated with the presentation includes Abdominal wall injury, diverticulitis, constipation UTI, expanding AAA, Admission/Observation Consideration of admission/observation: Escalation of care including admission/observation considered Lab Data [facility] Lab Attestation statement: I reviewed the patient's lab results. See MDM 01/10/25 11:10 01/10/25 11:10 Labs: Lab Results 01/10/25 01/10/25 Range/Units 11:10 11:45 WBC 8.9 (4.8-10.8) X10*3/uL RBC 4.63 (4.60-5.80) X10*6/uL Hgb 14.8 (14.0-18.0) g/dl Hct 44.3 (42.0-52.0) % MCV 95.7 (80.0-98.0) fL MCH 32.0 (27.0-33.0) pg MCHC 33.4 (31.0-36.0) g/dl RDW 12.8 (11.0-16.0) % Plt Count 173 (160-400) X10*3/uL MPV 10.2 (9.4-12.4) fL Immature Gran % (Auto) 0.6 H (0.0-0.4) % Neut % (Auto) 69.8 (45-73) % Lymph % (Auto) 17.5 L (20-40) % George % (Auto) 9.2 (2-11) % Eos % (Auto) 2.6 (0-4) % Baso % (Auto) 0.3 (0-2) % Lymph # (Auto) 1.6 (1.2-4.9) X10*3/uL George # (Auto) 0.8 (0.1-1.2) X10*3/uL Eos # (Auto) 0.2 (0.0-0.4) X10*3/uL Baso # (Auto) 0.0 (0.0-0.2) X10*3/uL Abs Immat Gran (auto) 0.05 H (0.00-0.03) X10*3/uL Absolute Neuts (auto) 6.2 (2.0-8.3) x10*3/uL Absolute Nucleated RBC 0.000 (0.0-0.012) X10*3/uL Nucleated RBC % (auto) 0.0 (0.0-0.2) /100WBC ESR 16 H (0-15) MM/HR Sodium 139 (135-145) mmol/L Potassium 4.8 (3.3-5.1) mmol/L Chloride 106 (96-108) mmol/L Carbon Dioxide 26 (22-29) mmol/L Anion Gap 12 (12-20) BUN 16 (9-16) mg/dL Creatinine 0.79 (0.5-1.4) mg/dL Estim Creat Clear Calc 85.4 Estimated GFR > 60 Random Glucose 110 (60-115) mg/dL Calcium 9.3 (8.4-10.2) mg/dL Magnesium 2.4 (1.6-2.6) mg/dL Total Bilirubin 1.1 H (0.0-1.0) mg/dL Direct Bilirubin 0.3 (0.0-0.5) mg/dL AST 26 (5-37) U/L ALT 26 (0-40) U/L Alkaline Phosphatase 86 (39-117) U/L Troponin I High Sens 4.6 (<3.5-35.0) ng/L C-Reactive Protein 0.30 (< or = 0.50) mg/dL Total Protein 7.2 (6.5-8.0) g/dL Albumin 4.4 (3.5-5.0) g/dL Lipase 34 (8-78) U/L Urine Color Yellow Urine Appearance Clear Urine pH 6.5 (5.0-9.0) Ur Specific [place] 1.020 (1.005-1.025) Urine Protein Negative (Neg-Trace) mg/dL Urine Glucose (UA) Negative (Negative) mg/dL Urine Ketones Negative (Negative) mg/dL Urine Blood Negative (Negative) Urine Nitrite Negative (Negative) Ur Leukocyte Esterase Moderate (2+) H (Negative) Urine RBC 0-2 (0-2) /HPF Urine WBC 21-50 H (0-5) /HPF Ur Squamous Epith Cells 0-2 (0-2) /HPF Urine Bacteria None Seen (None Seen) Hyaline Casts 0-2 (0-2) /LPF Independent Interpretation I performed an independent interpretation of an: EKG Interpretation: EKG sinus bradycardic at a ventricular rate of 58 beats per minute, RI interval 162, QT QTC 426/418, no STEMI Radiology Impression Discussion of test interpretation with radiology: I have reviewed the radiologist's reading. Radiologist Impression: Findings: The heart size is normal. No aortoiliac dissection. Ectatic ascending thoracic aorta measuring up to 41 mm in the axial plane. Subcentimeter hypodense left thyroid lobe nodule. Unremarkable mediastinum. Mild bilateral dependent lung atelectasis. No lung infiltrate, effusion, or pneumothorax. Fusiform infrarenal abdominal aortic aneurysm measuring up to 4 x 5 cm in the axial plane with up to 16 mm thick mural thrombus (this aneurysm also measured up to 4 x5 cm on the 11/23/2024 ultrasound). Mild splenomegaly measuring 13.2 cm in anteroposterior dimension. Cholecystectomy. Simple right renal cyst. No hydronephrosis or urinary tract stone. Mild colonic diverticulosis without diverticulitis. No bowel obstruction. Normal appendix. Enlarged prostate measuring 51 mm in width. Surgical clip posterior to the right seminal vesicle. Small bilateral fat containing uncomplicated umbilical hernias. Rest of the abdominopelvic viscera are unremarkable. No acute fracture. Spinal degenerative changes. IMPRESSION: 1. No aortoiliac dissection. 2. Fusiform infrarenal abdominal aortic aneurysm measuring up to 4 x 5 cm in the axial plane with up to 16 mm thick mural thrombus (this aneurysm also measured up to 4 x5 cm on the 11/23/2024 ultrasound). 3. Ectatic ascending thoracic aorta measuring up to 41 mm in the axial plane. This document has been electronically signed by: Le Lane MD on 01/10/2025 13:33:53 Dictated By: Le Lane MD Findings: The heart size is normal. No aortoiliac dissection. Ectatic ascending thoracic aorta measuring up to 41 mm in the axial plane. Subcentimeter hypodense left thyroid lobe nodule. Unremarkable mediastinum. Mild bilateral dependent lung atelectasis. No lung infiltrate, effusion, or pneumothorax. Fusiform infrarenal abdominal aortic aneurysm measuring up to 4 x 5 cm in the axial plane with up to 16 mm thick mural thrombus (this aneurysm also measured up to 4 x5 cm on the 11/23/2024 ultrasound). Mild splenomegaly measuring 13.2 cm in anteroposterior dimension. Cholecystectomy. Simple right renal cyst. No hydronephrosis or urinary tract stone. Mild colonic diverticulosis without diverticulitis. No bowel obstruction. Normal appendix. Enlarged prostate measuring 51 mm in width. Surgical clip posterior to the right seminal vesicle. Small bilateral fat containing uncomplicated umbilical hernias. Rest of the abdominopelvic viscera are unremarkable. No acute fracture. Spinal degenerative changes. IMPRESSION: 1. No aortoiliac dissection. 2. Fusiform infrarenal abdominal aortic aneurysm measuring up to 4 x 5 cm in the axial plane with up to 16 mm thick mural thrombus (this aneurysm also measured up to 4 x5 cm on the 11/23/2024 ultrasound). 3. Ectatic ascending thoracic aorta measuring up to 41 mm in the axial plane. This document has been electronically signed by: Le Lane MD on 01/10/2025 13:15:39 Dictated By: Le Lane MD Findings: Cervical spine straightening. Normal alignment without acute fracture. Multilevel cervical spine degenerative changes. Unremarkable prevertebral soft tissues. Left maxillary sinus mucosal thickening. For the upper thoracic findings please refer to the same-day chest CT report. Atherosclerotic calcifications. IMPRESSION: No acute fracture. This document has been electronically signed by: Le Lane MD on 01/10/2025 12:59:56 Dictated By: Le Lane MD CLINICAL HISTORY: fall, +head strike CT head without contrast Comparison: None provided Findings: No intra-axial mass, midline shift, hydrocephalus, or acute hemorrhage. Mild age-related cerebral hemispheric white matter ischemic changes. Mild mucosal thickening in some of the paranasal sinuses. The orbits are within normal limits. No skull fracture. IMPRESSION: 1. No acute intracranial findings. This document has been electronically signed by: Le Lane MD on 01/10/2025 12:36:42 Dictated By: Le Lane MD Medications Administered Discontinued Medications Generic Name Dose Route Start Last Admin Trade Name Freq PRN Reason Stop Dose Admin Iohexol 100 ml 01/10/25 11:55 01/10/25 11:55 Iohexol 350 Mg/Ml 100 Ml Infus..Btl IV 01/10/25 11:56 100 ml ONCE ONE Administration Discharge Plan Discharge Clinical Impression: Acute UTI Fall Qualifiers: Encounter type: initial encounter Qualified Code(s): W19.XXXA - Unspecified fall, initial encounter AAA (abdominal aortic aneurysm) without rupture Qualifiers: Abdominal aorta location: infrarenal aorta Qualified Code(s): I71.43 - Infrarenal abdominal aortic aneurysm, without rupture Patient Disposition: Home, Self-Care Instructions: Urinary Tract Infection in Men (ED) Additional Instructions: You were seen in the emergency department after having a fall. You were found to have a urinary tract infection. We sent over antibiotics to your pharmacy. Please finish the entire course even if your symptoms improve. Your CT scan does show a AAA with a thrombus which you have had in the past, this was discussed with Dr. Vernon, recommending for you to keep your appointment in January, no emergent interventions are warranted at this time. Your CT of your head in your neck do not show any acute findings from your fall which occurred 1 week ago. Please follow-up with Dr. Charlton as well as your primary care physician regarding this visit. If any new or worsening symptoms occur including but not limited to severe chest pain, shortness of breath, severe back pain, abdominal pain, nausea, vomiting or diarrhea, please seek emergent care. Prescriptions: New cefuroxime axetil 500 mg tablet 500 mg PO BID 7 Days Qty: 14 0RF No Action losartan 50 mg tablet 50 mg PO DAILY atorvastatin 20 mg tablet 20 mg PO DAILY aspirin 325 mg tablet 162.5 mg PO 2XW tamsulosin 0.4 mg capsule 0.4 mg PO BID Men's 50 Plus Multivitamin 400-20-370 mcg tablet 1 tab PO DAILY fexofenadine [Remedios Allergy] 180 mg tablet 180 mg PO DAILY Qty: 90 3RF magnesium glycinate 100 mg magnesium capsule 100 mg PO .QD coQ10 (ubiquinol) [Qunol Rashawn CoQ10] 100 mg capsule 100 mg PO ONCE clotrimazole-betamethasone 1-0.05 % cream 1 appl topical BID polyethylene glycol 3350 [Miralax] 17 gram/dose powder 17 g PO DAILY cholecalciferol (vitamin D3) 50 mcg (2,000 unit) capsule 50 mcg PO DAILY Stand Alone Forms: Against Medical Advice Interventions: ED Discharge Assessment Last Done: 01/10/25 14:04 Discharge Date/Time: 01/10/25 14:04 Print Language: Swedish
--- NOTE | 2025-01-10 09:48 | ECG_ITS ---
Test Reason : PALPITATIONS Blood Pressure : */* mmHG Vent. Rate : 58 BPM Atrial Rate : 58 BPM P-R Int : 162 ms QRS Dur : 98 ms QT Int : 426 ms P-R-T Axes : 22 -3 42 degrees QTcB Int : 418 ms Sinus bradycardia Otherwise normal ECG No previous ECGs available Referred By: Elidia Zamarripa Electronically Signed By: MIRANDA HONEYCUTT
[2025-01-10 09:52] VITALS: BP 129/67; PULSE 61; RESP 18; TEMP 36.2; O2SAT 96
[2025-01-10 11:13] LABS: MANUAL DIFF FLAG NO
[2025-01-10 11:18] LABS: Hematocrit 44.3 % (42.0-52.0); Hemoglobin 14.8 g/dl (14.0-18.0); Imm Gran Abs Auto 0.05 X10*3/uL (0.00-0.03); Imm Gran Pct Auto 0.6 % (0.0-0.4); Lymphocytes Absolute Auto 1.6 X10*3/uL (1.2-4.9); Mean Corpuscular HGB Conc 33.4 g/dl (31.0-36.0); Mean Corpuscular Hemoglobin 32.0 pg (27.0-33.0); Mean Corpuscular Volume 95.7 fL (80.0-98.0); NRBC Abs Auto 0.000 X10*3/uL (0.0-0.012); NRBC Pct Auto 0.0 /100WBC (0.0-0.2); Platelet Count 173 X10*3/uL (160-400); Red Blood Count 4.63 X10*6/uL (4.60-5.80); White Blood Count 8.9 X10*3/uL (4.8-10.8)
[2025-01-10 11:36] LABS: Alanine Aminotransferase 26 U/L (0-40); Albumin Level 4.4 g/dL (3.5-5.0); Alkaline Phosphatase 86 U/L (39-117); Anion Gap 12 (12-20); Aspartate Amino Transferase 26 U/L (5-37); Blood Urea Nitrogen 16 mg/dL (9-16); Calcium 9.3 mg/dL (8.4-10.2); Carbon Dioxide 26 mmol/L (22-29); Chloride 106 mmol/L (96-108); Creatinine Clr Calc Pharmacy 85.4; Estimated Glomerular Filt Rate > 60; Lipase 34 U/L (8-78); Magnesium 2.4 mg/dL (1.6-2.6); Potassium 4.8 mmol/L (3.3-5.1); Sodium 139 mmol/L (135-145); Total Protein 7.2 g/dL (6.5-8.0)
[2025-01-10 11:40] LABS: Troponin-I High Sensitivity 4.6 ng/L (<3.5-35.0)
[2025-01-10 11:51] LABS: Erythrocyte Sedimentation Rate 16 MM/HR (0-15)
[2025-01-10 11:51] LABS: Appearance Urine Clear; Glucose Urine UA Negative (Negative); PH 6.5 (5.0-9.0); Specific Gravity - Urine 1.020 (1.005-1.025); UMIC TRIGGER UACC YES
[2025-01-10] MEDS: iohexoL 350 MG/ML 100 ML INFUS..BTL IV (11:55)
[2025-01-10 11:56] LABS: UACC Culture Trigger YES
[2025-01-10 14:04] VITALS: BP 129/67; PULSE 61; RESP 18; TEMP 36.2; O2SAT 96
== END 2025-01-10 14:04 | disposition home or self-care (01) ==
PROVIDERS: Physician Assistant Medical; Emergency Provider Emergency Medicine; PCP Internal Medicine
DX: N39.0 Urinary tract infection, site not specified (principal); I71.43 Infrarenal abdominal aortic aneurysm, without rupture; I10 Essential (primary) hypertension; Z91.81 History of falling
CPT/HCPCS: 36415; 70450; 71275; 72125; 74174; 80048; 80076; 81001; 83690; 83735; 84484; 85025; 85652; 86140; 87086; 93005; 99285; Q9967

== ENCOUNTER → 2025-01-10 09:48 | Outpatient (BNV) | payer MEDICARE, SELFPAY | PROVIDERS: Emergency Provider Emergency Medicine; PCP Internal Medicine; Visit Provider Internal Medicine | DX: R00.1 Bradycardia, unspecified (principal) | CPT/HCPCS: 93010 ==

== ENCOUNTER 2025-01-12 11:41 | Outpatient (AMB) | payer MEDICARE, SELFPAY ==
--- NOTE | 2025-01-12 11:42 | MHC.OFFVIS ---
Intake Visit Reasons: 3m/US/PSA Intake Note: Patient is present via telehealth for 3m/US/PSA 12/08 Total PSA:0.78 01/03 Retroperitoneum US Urology Medication:TAMSULOSIN Antibiotic Allergy:NONE Blood Thinner:ASPIRIN Business Solution Analyst Required: No Allergies Gadolinium-Containing Contrast Medi Allergy (Mild, Verified 01/12/25 12:25) Rash Medication List - Last Reconciled 01/12/25 by SOPHIA Salazar- aspirin 162.5 mg PO 2XW atorvastatin 20 mg PO DAILY cefuroxime axetil 500 mg PO BID 7 days cholecalciferol (vitamin D3) 50 mcg PO DAILY clotrimazole-betamethasone 1-0.05 % 1 appl topical BID coQ10 (ubiquinol) (Qunol Rashawn CoQ10) 100 mg PO ONCE fexofenadine (Remedios Allergy) 180 mg PO DAILY losartan 50 mg PO DAILY magnesium glycinate 100 mg PO .QD zthlohei-kox-spdwd-vit K-lycop 400-20-370 mcg (Men's 50 Plus Multivitamin) 1 tab PO DAILY polyethylene glycol 3350 (Miralax) 17 grams PO DAILY tamsulosin 0.4 mg PO BID HPI Comments Details: Vivek is a 79-year-old male patient of Dr. Hnason. He has a past medical history of hypertension, BPH, hyperlipidemia, and abdominal aortic aneurysm. He is being followed up on today via telehealth. In discussion with the patient today reports to be doing and feeling well. He continues to report compliance with Flomax 0.8 mg daily. Most recent PSA and retroperitoneal ultrasound results reviewed with the patient today. Retroperitoneal ultrasound 01/19 bilateral kidneys are normal in size and echotexture. No collecting system dilatation of either kidney. Normal color Doppler. The urinary bladder is unremarkable. No acute findings per radiology report. The prostate was not well visualized on retroperitoneal ultrasound however patient with recent CT that was performed and ER status post a fall that noted 01/19 Enlarged prostate measuring 51 mm in width. He does discuss feeling Flomax has been helpful in treatment of weak urinary stream. He does continue to experience issues with his urinary stream however describes these episodes as infrequent and feels he is managing well with current management. Most recent PSA results reviewed with the patient today as noted and trended below: PSA 07/17 0.8, 12/19 0.8 He denies nocturia, hematuria, dysuria, foul smelling urine, flank pain, fever, and or chills. We did discussed potential causes of weak urinary stream as well as further treatment options and risks and benefits of these treatment options. All questions were answered. He otherwise offers no other issues or concerns at this time. He does discusses upcoming travel to [place] for the winter and will be back sometime in July of 2025. [facility] Medical History UTI (urinary tract infection) Fall Thyroid nodule Colon cancer screening (~12/22/24) Shortness of breath Throat discomfort Heart murmur Rhinitis Hypertension Hyperlipidemia Prediabetes GERD (gastroesophageal reflux disease) Surgical History Hx of cholecystectomy Family History Mother AD (Alzheimer's disease) Father Heart disease Social History Housing: House Alcohol intake: current Alcohol intake frequency: a few times a week Patient Tobacco Use Status: Former Tobacco user Tobacco use type: Cigarette Years Smoked: quit about 36yo e-Cigarette/Vaping Use: Never Used service: Yes Current occupational status: retired Cognitive needs: No Hearing needs: No Vision needs: Yes (rx glasses) Review of Systems Const All systems reviewed & are unremarkable except as noted in HPI and below Physical Exam Const General: cooperative, healthy appearing, comfortable, no acute distress, well developed, alert and awake Orientation/consciousness: patient oriented x3 Resp Effort & Inspection: normal respiratory effort and able to speak in complete sentences Neuro General: patient oriented x3 Psych Appearance: grossly normal Speech and movement: Clear speech present Affect: normal affect Attitude: cooperative Thought process: Normal thought process present Thought content: Normal thought content present Insight: Fair insight present (Psych) Judgement: Fair judgement present (Psych) Telehealth Telehealth Telehealth Platform: [facility] Location of provider rendering services: practice address Location of patient: address on file Patient Identification confirmed using: Name, : Yes Telehealth method: video Patient verbally consented to treatment: Yes Patient verbally consented to billing insurance company: Yes Patient informed of any privacy concerns related to visit: Yes Minutes spent on Phone/Video with Pt.: 15 Results Reviewed Results Reviewed: Date of Service: 01/10/25 Procedure(s): CT angio abdomen pelvis Findings: The heart size is normal. No aortoiliac dissection. Ectatic ascending thoracic aorta measuring up to 41 mm in the axial plane. Subcentimeter hypodense left thyroid lobe nodule. Unremarkable mediastinum. Mild bilateral dependent lung atelectasis. No lung infiltrate, effusion, or pneumothorax. Fusiform infrarenal abdominal aortic aneurysm measuring up to 4 x 5 cm in the axial plane with up to 16 mm thick mural thrombus (this aneurysm also measured up to 4 x5 cm on the 11/23/2024 ultrasound). Mild splenomegaly measuring 13.2 cm in anteroposterior dimension. Cholecystectomy. Simple right renal cyst. No hydronephrosis or urinary tract stone. Mild colonic diverticulosis without diverticulitis. No bowel obstruction. Normal appendix. Enlarged prostate measuring 51 mm in width. Surgical clip posterior to the right seminal vesicle. Small bilateral fat containing uncomplicated umbilical hernias. Rest of the abdominopelvic viscera are unremarkable. No acute fracture. Spinal degenerative changes. IMPRESSION: 1. No aortoiliac dissection. 2. Fusiform infrarenal abdominal aortic aneurysm measuring up to 4 x 5 cm in the axial plane with up to 16 mm thick mural thrombus (this aneurysm also measured up to 4 x5 cm on the 11/23/2024 ultrasound). 3. Ectatic ascending thoracic aorta measuring up to 41 mm in the axial plane. Date of Service: 01/01/25 Procedure(s): US retroperitoneal comp US Renal Comparison: None provided Findings: Right kidney normal size and echotexture, 12.3 cm length. Left kidney normal size and echotexture, 12.5 cm length. No collecting system dilatation of either kidney. Normal color Doppler. Urinary bladder is unremarkable. Prevoid volume 457 mL. Postvoid volume 48 mL. Bilateral ureteral jets are visualized. IMPRESSION: 1. No acute findings. Assessment & Plan Assessment & Plan (1) Weak urinary stream: Code(s): R39.12 - Poor urinary stream Category: Medical (2) Enlarged prostate: Code(s): N40.0 - Benign prostatic hyperplasia without lower urinary tract symptoms Category: Medical Plan Most recent retroperitoneal ultrasound results reviewed with the patient today; as noted above. Most recent PSA results reviewed with the patient today; as noted above. We did discussed at length further treatment options of urological conditions and risks and benefits of these treatment options. All questions were answered. He reports be happy with current voiding parameters. Will continue with surveillance monitoring at this time. Continue Flomax as discussed and prescribed. Follow-up in July with PSA and PVR; or sooner with any issues, concerns, and or questions. Orders: Orders Prostate Specific Antigen 6 Months N40.0 - Benign prostatic hyperplasia without lower urinary tract symptoms, R39.12 - Poor urinary stream Patient Instructions: The patient had an opportunity to ask questions regarding the treatment plan. All questions were answered. Physical exam, labs, and imaging were discussed and reviewed in detail. As well as risks, benefits, and discussion of treatment choices. No major barriers to understanding were identified. The patient expressed understanding and agreement with the above treatment plan. The patient was made aware they should contact our office by phone for worsening of their current condition, the appearance of new symptoms, or with any questions or concerns. Compliance is encouraged with any medications and follow up testing that is ordered. It is a privilege to be allowed the opportunity to participate in? your urological care.? Again, if you have any questions or concerns If you have any questions or concerns please do not hesitate to contact me. The office is [phone]. This note is constructed using voice recognition software. While every effort has been made to ensure accuracy bar assistant errors may have been included. Yours sincerely, REG Salazar Coding Level of Care Code Tele Est Pt Level 3 (92138) Diagnoses Weak urinary stream R39.12 Enlarged prostate N40.0
== END 2025-01-12 13:25 | disposition home or self-care (01) ==
LOC: HO.HUSH 11:41
PROVIDERS: PCP Internal Medicine; Visit Provider Nurse Practitioner Family
DX: R39.12 Poor urinary stream (principal); N40.0 Benign prostatic hyperplasia without lower urinary tract symptoms
CPT/HCPCS: 99213

== ENCOUNTER 2025-01-19 11:38 | Outpatient (REF) | payer MEDICARE, SELFPAY ==
[2025-01-19 13:12] LABS: Appearance Urine Turbid; Glucose Urine UA Negative (Negative); PH 5.5 (5.0-9.0); Specific Gravity - Urine 1.025 (1.005-1.025)
--- OUTSIDE RECORDS SUMMARY | 2025-01-19 15:27 | XMS_ITS | Patient Health Record ---
Author Organization [facility] Address [address] [place] [address] Care Team Providers Care School Psychology Professor Name Role Phone Hadley (RETIRED) Kwan SEALS Primary Care Provider Unavailable Marin Haynes Unavailable [phone] Reason For Referral No Information Plan Of Treatment No Information
== END 2025-01-19 11:39 | disposition home or self-care (01) ==
LOC: HO.10HDLNP 11:38
PROVIDERS: Visit Provider Internal Medicine
DX: N39.0 Urinary tract infection, site not specified (principal)
CPT/HCPCS: 81003

== ENCOUNTER 2025-02-02 13:14 | Outpatient (AMB) | payer MEDICARE, SELFPAY ==
--- NOTE | 2025-02-02 13:16 | A.OFFVIS_ITS ---
Intake Visit Reasons: follow up CTA Abd/Pelvis 01/25/25 Intake Note: Patient presents for CTA ABD/Pelvis performed 01/26/25. No complaints. Accompanied by: Self / Same As Patient Allergies Gadolinium-Containing Contrast Medi Allergy (Mild, Verified 02/02/25 13:18) Rash HPI HPI follow up CTA Abd/Pelvis 01/25/25: Details: The patient is a 79 year old male presenting for follow up regarding an aortic aneurysm. A CT scan dated 01/10/2025 revealed the aneurysm is approximately 5 cm in diameter. The shape of the aneurysm is described as saccular, which is a p oint of concern. The patient is scheduled for an appointment with a public works laborer tomorrow for preoperative cardiac clearance, which will likely include a stress test. He typically travels to [place] for the winter after and plans to be there until the snow is gone. He now presents for follow-up with CT angiogram. [facility] Medical History UTI (urinary tract infection) Fall Thyroid nodule Colon cancer screening (~12/22/24) Shortness of breath Throat discomfort Heart murmur Rhinitis Hypertension Hyperlipidemia Prediabetes GERD (gastroesophageal reflux disease) Surgical History Hx of cholecystectomy Family History Mother AD (Alzheimer's disease) Father Heart disease Social History Housing: House Alcohol intake: current Alcohol intake frequency: a few times a week Patient Tobacco Use Status: Former Tobacco user Tobacco use type: Cigarette Years Smoked: quit about 36yo e-Cigarette/Vaping Use: Never Used service: Yes Current occupational status: retired Cognitive needs: No Hearing needs: No Vision needs: Yes (rx glasses) Review of Systems Const All systems reviewed & are unremarkable except as noted in HPI and below Reports no additional complaints ENT Reports Normal hearing present Card Denies chest pain, Denies chest pain at rest, Denies chest pain with activity and Denies pedal edema Resp Denies cough GI Denies abdominal pain Musc Denies abnormal gait, Denies muscle cramps and Denies radiating pain into limb Skin/Breast Denies skin ulcer and Denies wounds Neuro Reports Normal hearing present and Denies abnormal gait Psych Reports no additional complaints Physical Exam Const General: cooperative, healthy appearing and comfortable Orientation/consciousness: oriented to person, oriented to place and oriented to time HEENT Head: Yes normal to inspection Neck Neck: Yes normal visual inspection Carotids: no bruits Chest Chest palpation & inspection: normal inspection of the chest Resp Effort & Inspection: normal respiratory effort and able to speak in complete sentences Auscultation: clear to auscultation bilaterally, no crackles, no rales, no rhonchi and no wheezes Cardio Rate: regular rate Rhythm: regular rhythm Heart sounds: S1 normal heart sound present and S2 normal heart sound present Bruits: no carotid bruits Peripheral pulses: Peripheral pulses 2+ throughout GI Inspection: Yes normal to inspection Skin Wounds: no wounds Hair: normal Neuro General: oriented to person, oriented to place and oriented to time Cranial nerves: Yes CN's II-XII intact bilaterally and Yes Normal hearing present Cognition (Neuro): normal cognition Motor exam (neuro): 5/5 motor strength present throughout Extrem Other: venous exam: No significant superficial varicosities or spider telangiectasias, minimal edema General: No clubbing, No cyanosis and No edema Psych Appearance: grossly normal Mental Status: mental status grossly normal Speech and movement: Normal speech and movement present Results Reviewed Results Reviewed: CT angiogram dated 01/10/2025 demonstrates a 4 x 5 cm aneurysm with surrounding mural thrombus. Assessment & Plan Assessment & Plan (1) AAA (abdominal aortic aneurysm) without rupture: Code(s): I71.40 - Abdominal aortic aneurysm, without rupture, unspecified Category: Medical Qualifiers: Abdominal aorta location: infrarenal aorta Qualified Code(s): I71.43 - Infrarenal abdominal aortic aneurysm, without rupture Plan: In short patient has abdominal aortic aneurysm. Patient will require endovascular aneurysm repair possible open repair. Risks benefits complications including but not limited to bleeding infection rupture and were discussed in detail with the patient. He understood and consented. He will require cardiac risk stratification prior to surgery. Thank you for allowing us to assist in his care. Coding Level of Care Code Est Pt Level 4 (29974) Add On Problem Visit Only Diagnoses Infrarenal abdominal aortic aneurysm (AAA) without rupture I71.43 Abdominal aorta location: infrarenal aorta
--- OUTSIDE RECORDS SUMMARY | 2025-02-02 17:38 | XMS_ITS | Patient Health Record ---
Author Organization [facility] Address [address] [place] [address] Care Team Providers Care Flotation Operator Name Role Phone Hadley (RETIRED) Kwan SEALS Primary Care Provider Unavailable Marin Haynes Unavailable [phone] Reason For Referral No Information Plan Of Treatment No Information
== END 2025-02-02 14:10 | disposition home or self-care (01) ==
LOC: HO.HVS 13:15
PROVIDERS: PCP Internal Medicine; Visit Provider Surgery Vascular Surgery
DX: I71.43 Infrarenal abdominal aortic aneurysm, without rupture (principal)
CPT/HCPCS: 99214; G2211

== ENCOUNTER → 2025-02-02 13:14 | Outpatient (BNVA) | payer MEDICARE, SELFPAY | PROVIDERS: PCP Internal Medicine; Visit Provider Surgery Vascular Surgery | DX: I71.43 Infrarenal abdominal aortic aneurysm, without rupture (principal) | CPT/HCPCS: 99212 ==

== ENCOUNTER → 2025-02-03 08:49 | Outpatient (REF) | payer MEDICARE, SELFPAY ==
--- NOTE | 2025-02-03 08:52 | CA_ITS ---
Acquisition Time: 2025-02-03 10:00:14 Total Exercise Time: 00:02:00 Test Indications: Dyspnea LIGHTHEADEDNESS Medications: SEE H&P Protocol: LEXISCAN Max HR: 80 BPM 56% of Pred: 142 BPM Max BP: 118/60 mmHG Max Work Load: 1.0 METS Pharmacological stress test with Lexiscan while pt swings his legs in chair, with reports of mild SOB, without any arrythmias, with normotensive response to injection. Nondiagnostic EKG for ischemia. In recovery, breathing improved and pt feeling back to baseline. Nuclear images pending. Test reviewed with Dr. Merida. Referred By: Campos Merida Electronically Signed By: Deven Lang
--- NOTE | 2025-02-03 08:52 | CA_ITS ---
Transthoracic Echocardiogram Patient (Last, First, Middle): Vivek Appiah, Gender: Male Date of : 1945 Age: 79 Procedure Date: 02/03/2025 Procedure Type: Transthoracic Echocardiogram Location: OP Height: 167.64 cm Weight: 101.61 kg BSA: 2.10 m2 Heart Rate: bpm BP: 130 / 72 mmHg Wildlife Forensic Geneticist: MARY Referring MD: Campos Merida MD Wood Carver Hand: Campos Merida MD Symptoms: R06.02 - Shortness of breath Study Quality: Adequate ECG Rhythm: Sinus Conclusions: - 1. Normal LV ejection fraction of 65-70% with impaired relaxation filling pattern 2. Mild aortic stenosis and regurgitation noted 3. Mildly dilated ascending aorta at 4.1 cm Findings Left Ventricle Normal left ventricular size, thickness, and systolic function. The visually estimated ejection fraction is between 65-70%. Spectral Doppler is indicative of an impaired relaxation filling pattern. E/E prime ratio is between 8 and 15 consistent with indeterminate filling pressures. Right Ventricle Normal right ventricular cavity size and systolic function. Atria Both atria are normal in size. There is no evidence of interatrial shunt. Aortic Valve The aortic valve was not well visualized. There is mild calcification of the aortic valve. There is mild aortic valve stenosis. The peak aortic gradient is 20 mmHg.The mean gradient is 10 mmHg. The aortic valve area is 2.06 cm2. There is mild aortic valve regurgitation. Mitral Valve The mitral valve was not well visualized. There is no mitral valve regurgitation. There is no mitral valve stenosis. Pulmonic Valve The pulmonic valve was not well visualized. Tricuspid Valve The tricuspid valve was not well visualized. Tricuspid regurgitation envelope is inadequate for calculation of right ventricular systolic pressure. Normal right atrial pressure. Great Vessels The pulmonary artery was not well visualized. There is mild dilatation of the ascending aorta measuring 4.10 cm. Small plaque is seen in the sino tubular ridge. Venous The inferior vena cava is normal in size and collapses greater than 50% with inspiration. Pericardium/Pleural The pericardium was not well visualized. Prior Study Comparison No prior study available for comparison. Measurements 2D Linear Measurements IVSd: 0.94 0.6-0.9/0.6-1.0 cm LVIDd: 3.41 3.9-5.3/4.2-5.9 cm LVIDd Index: 1.62 2.4-3.2/2.2-3.1 cm/m2 LVIDs: 2.29 2.0-3.6 cm LVPWd: 0.82 0.7-1.1 cm LA Diam: 3.90 2.7-3.8/3.0-4.0 cm LAIDs Index: 1.86 1.5-2.3 cm/m2 LV Mass: 136.75 67-162/88-224 g LV Mass Index: 65.12 43-95/49-115 g/m2 LVOT Diam: 2.20 3.0+(-)1.3 cm 2D Systolic Function EF 4C: 69.10 >55% EF 2C: 63.80 >55% EF BiP: 67.80 >55% Mitral Valve MV Pk E: 0.74 MV PK A: 0.81 MV Decel Time: 263.00 E/A: 0.90 E'Lateral: 6.42 E'Medial: 4.57 E/E' Med: 16.10 E/E' Lat: 11.50 PHT: 77.00 MVA PHT: 2.86 Decel Crane: 2.80 Aortic Valve AoV Pk Eulogio: 2.23 AoV Mn Eulogio: 1.49 AoV VTI: 0.49 AoV Pk Grad: 20.00 Aov Mn Grad: 10.00 PRASANNA Cont.VTI: 2.06 AI Pk Eulogio: 4.40 AI Crane: 1.86 LVOT LVOT Pk Eulogio: 1.22 LVOT Mn Eulogio: 0.89 LVOT VTI: 0.27 LVOT Pk Grad: 6.00 LVOT Mn Grad: 3.00 LVOT Diam: 2.20 LVOT Area: 3.80 Diastolic Function MV Pk E: 0.74 MV Pk A: 0.81 E/A: 0.90 E'Medial: 4.57 E/E' Med: 16.10 E' Laterial: 6.42 E/E' Lat: 11.50 Right Ventricle TAPSE (mm): 24.40 TVS' Eulogio: 15.60 Tricuspid Valve RA Press: 3.00 Great Vessels Aorta Sinus of Valsalva: 3.92 2.0-3.[address] Ridge: 2.61 1.7-3.4 cm Ao Asc: 4.10 2.1-3.4 cm Ao Arch: 3.10 Pulmonary Veins Pulm Vein S/D 1.80 Updated in Other Vendor System with Status of Final Campos Merida MD electronically signed on 02/04/2025 5:00:08 PM with status of Final
== END ==
LOC: HO.CARD 08:49
PROVIDERS: PCP Internal Medicine; Visit Provider Internal Medicine Cardiovascular Disease
DX: R06.02 Shortness of breath (principal); R07.9 Chest pain, unspecified
CPT/HCPCS: 78452; 93017; 93306; A9500; J0280; J2785

== ENCOUNTER → 2025-02-03 08:52 | Outpatient (BNV) | payer MEDICARE, SELFPAY | PROVIDERS: PCP Internal Medicine | DX: R06.02 Shortness of breath (principal) | CPT/HCPCS: 78452; 93016; 93018; 93306 ==